=== PATIENT | female | born 1965 | race Caucasian/White ===

== ENCOUNTER 2018-09-30 18:23 | Emergency (ER) | payer OTHER ==
--- OUTSIDE RECORDS SUMMARY | 2018-09-30 18:25 | XMS REPORT | Clinical Summary ---
:1965 Author Organization [facility] Address [address] [place] [address] Care Team Providers Name Role Phone Domingo Mccabe MD Primary Care Provider Allergies No Known Allergies Medications Medication Sig Dispensed Refills Start Date End Date Status bisoprolol-hydrochlorothiazide 0 11/05/2015 Active (ZIAC) 2.5-6.25 mg per tablet escitalopram (LEXAPRO) 10 MG tablet 0 01/03/2016 Active Active Problems Problem Noted Date Leg pain, right 02/14/2016 Family History Medical History Relation Name Comments Cancer Father Varicose Veins Mother Relation Name Status Comments Father oral cancer Mother Social History Tobacco Use Types Packs/Day Years Used Date Never Smoker Alcohol Use Drinks/Week oz/Week Comments No Sex Assigned at Date Recorded Not on file Job Start Date Occupation Industry Not on file Not on file Not on file Travel History Travel Start Travel End No recent travel history available. Last Filed Vital Signs Not on file Plan of Treatment Health Maintenance Due Date Last Done Comments BREAST CANCER SCREENING 02/23/2014 COLONOSCOPY SCREENING 02/23/2014 SHINGLES VACCINES (#1) 02/23/2014 INFLUENZA VACCINE 10/17/2018 Results Not on fileafter 09/29/2017 Advance Directives Patient has advance care planning documents on file. For more information, please contact:Yonny [id number] [place] [address]
--- OUTSIDE RECORDS SUMMARY | 2018-09-30 18:26 | XMS REPORT | Continuity of Care Document ---
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 Medications Medication Details Route Status Patient Ordering Order Source Instructions Provider Date baclofen 10 mg oral 10 mg=1 tab, Active [facility] tablet PO, Bedtime, # 2018 Neuro 30 tab, 3 Refill(s), Pharmacy: [place] [id number] Aspirin 81 MG 81 mg=1 tab, Active [facility] Enteric Coated PO, Daily, # 90 2018 Neuro Tablet tab, 3 Refill(s) Escitalopram 10 mg, PO, Active [facility] Daily, 0 2018 Neuro Refill(s) Bisoprolol Fumarate 1 tab, PO, Active [facility] 2.5 MG / Daily, 0 2018 Neuro Hydrochlorothiazide Refill(s) 6.25 MG Oral Tablet Warfarin 5 mg, 1 tab, Inactive 10/23[facility] Route: PO, Drug 2013 Medical form: TAB, Center Q5PM, Dosing Weight 75.17, kg, Start date: 10/23/13 17:00:00, Duration: 1 doses or times, Stop date: 10/23/13 17:00:00Notes: Nurse to ensure documentation of patient education per anticoagulation policy. Avoid large intake of vitamin-K containing foods diet. (Same As: Coumadin) atorvastatin 40 mg 40 mg=1 tab, Active 10/23[facility] oral tablet PO, Bedtime, # 2014 Medical 30 tab, 0 Center Refill(s) Acetaminophen 325 650 mg=2 tab, Active 08/07/ [facility] [place] MG Oral Tablet PO, Q6H, Pain 2013 Medical 1-3/Temp > Center 100.4 F, # 30 tab, 0 Refill(s) warfarin 1 mg oral 1 mg=1 tab, PO, Active [place] tablet Every Other 2013 Medical Day, # 30 tab, Center 0 Refill(s) warfarin 4 mg oral 4 mg=1 tab, PO, Active [place] tablet Daily, # 30 2013 Medical tab, 0 Center Refill(s) Docusate Sodium 100 100 mg=1 cap, Active [place] MG Oral Capsule PO, Daily, # 30 2013 Medical [Colace] cap, 0 Center Refill(s) Warfarin 4 mg, 2 tab, Inactive [facility] Route: PO, Drug 2013 Medical form: TAB, Center Q5PM, Dosing Weight 75.17, kg, Start date: 10/22/13 17:00:00, Duration: 1 doses or times, Stop date: 10/22/13 17:00:00Notes: Nurse to ensure documentation of patient education per anticoagulation policy. Avoid large intake of vitamin-K containing foods diet. (Same As: Coumadin) Warfarin 5 mg, 1 tab, Inactive [facility] Route: PO, Drug 2013 Medical form: TAB, Center Q5PM, Dosing Weight 75.17, kg, Start date: 10/21/13 17:00:00, Duration: 1 doses or times, Stop date: 10/21/13 17:00:00Notes: Nurse to ensure documentation of patient education per anticoagulation policy. Avoid large intake of vitamin-K containing foods diet. (Same As: Coumadin) Warfarin 4 mg, 2 tab, Inactive [facility] Route: PO, Drug 2013 Medical form: TAB, Center Q5PM, Dosing Weight 75.17, kg, Start date: 10/20/13 17:00:00, Duration: 1 doses or times, Stop date: 10/20/13 17:00:00Notes: Nurse to ensure documentation of patient education per anticoagulation policy. Avoid large intake of vitamin-K containing foods diet. (Same As: Coumadin) Warfarin 5 mg, 1 tab, Inactive [facility] Route: PO, Drug 2013 Medical form: TAB, Center Q5PM, Dosing Weight 75.17, kg, Start date: 10/19/13 17:00:00, Duration: 1 doses or times, Stop date: 10/19/13 17:00:00Notes: Nurse to ensure documentation of patient education per anticoagulation policy. Avoid large intake of vitamin-K containing foods diet. (Same As: Coumadin) Miralax 17 gm, 1 pkt, No Longer [place] Route: PO, Drug Active 2013 Medical form: PWDR, [place] BID, Dosing Weight 75.17, kg, Priority: NOW, Start date: 10/19/13 12:32:00, Duration: 30 day, Stop date: 11/18/13 9:00:00Notes: Dissolve in 8 oz of water or juice. (Same as: Miralax) Warfarin 4 mg, 2 tab, Inactive [facility] Route: PO, Drug 2013 Medical form: TAB, Center Q5PM, Dosing Weight 75.17, kg, Start date: 10/18/13 17:00:00, Duration: 1 doses or times, Stop date: 10/18/13 17:00:00Notes: Nurse to ensure documentation of patient education per anticoagulation policy. Avoid large intake of vitamin-K containing foods diet. (Same As: Coumadin) Warfarin 7.5 mg, 1 tab, Inactive [facility] Route: PO, Drug 2013 Medical form: TAB, Center Q5PM, Dosing Weight 75.17, kg, Start date: 10/17/13 17:00:00, Duration: 1 doses or times, Stop date: 10/17/13 17:00:00Notes: Nurse to ensure documentation of patient education per anticoagulation policy. Avoid large intake of vitamin-K containing foods diet. (Same As: Coumadin) Potassium Chloride 20 mEq, 1 tab, Inactive [facility] Route: PO, Drug 2013 Medical form: ERTAB, Center ONCE, Dosing Weight 75.17, kg, Start date: 10/17/13 14:06:00, Stop date: 10/17/13 14:06:00Notes: (Same as: K-Dur 20) "Do Not Crush" With food and full glass of water Warfarin 7.5 mg, 1 tab, Inactive [facility] Route: PO, Drug 2013 Medical form: TAB, Center Q5PM, Dosing Weight 75.17, kg, Start date: 10/16/13 17:00:00, Duration: 1 doses or times, Stop date: 10/16/13 17:00:00Notes: Nurse to ensure documentation of patient education per anticoagulation policy. Avoid large intake of vitamin-K containing foods diet. (Same As: Coumadin) Acetaminophen 325 1 tab, Route: No Longer [place] MG / Hydrocodone PO, Drug Form: Active 2013 Medical Bitartrate 5 MG TAB, Dosing Center Oral Tablet [[place] Weight 75.17, 5/325] kg, Q6H, PRN Pain Score 7-10, Start date: 10/16/13 11:50:00, Duration: 30 day, Stop date: 11/15/13 11:49:00Notes: (Same as: [place] 325/5) Do not exceed 4gm/day of acetaminophen. Tylenol 650 mg, 2 tab, No Longer [place] Route: PO, Drug Active 2013 Medical form: TAB, Q6H, Center Dosing Weight 75.17, kg, PRN Pain 1-3/Temp > 100.4 F, Start date: 10/16/13 11:49:00, Stop date: 11/15/13 11:48:00Notes: Do not exceed 4 gm/day. (Same as: Tylenol) Docusate Sodium 100 100 mg, 1 cap, No Longer [place] MG Oral Capsule Route: PO, Drug Active 2013 Medical [Colace] form: CAP, Center Daily, Dosing Weight 75.17, kg, Start date: 10/16/13 9:00:00, Duration: 30 day, Stop date: 11/14/13 9:00:00Notes: (Same as: Colace) (Do Not Crush) potassium chloride 20 mEq, 15 mL, Inactive [place] Route: PO, Drug 2013 Medical form: LIQ, Q2H, Center Dosing Weight 75.17, kg, Start date: 10/16/13 9:00:00, Duration: 1 doses or times, Stop date: 10/16/13 9:00:00Notes: (Same as: Potassium Chloride) Potassium Chloride 20 mEq, 1 tab, Inactive [place] Route: PO, Drug 2013 Medical form: ERTAB, Center Q2H, Dosing Weight 75.17, kg, Start date: 10/16/13 6:00:00, Duration: 2 doses or times, Stop date: 10/16/13 8:00:00Notes: (Same as: K-Dur 20) "Do Not Crush" With food and full glass of water Neutra-Phos 2 pkt, Route: Inactive [facility] PO, Drug Form: 2013 Medical PDR/REC, Dosing Center Weight 75.17, kg, ONCE, Start date: 10/16/13 5:02:00, Stop date: 10/16/13 5:02:00Notes: (Same as: Neutra-Phos) Each 1.25 gm pkt has 250mg phosphorous. Mix w/2.5oz water and stir. Lipitor 40 mg, 1 tab, No Longer [facility] Route: PO, Drug Active 2013 Medical form: TAB, Center Bedtime, Dosing Weight 75.17, kg, Start date: 10/15/13 21:00:00, Stop date: 11/13/13 21:00:00Notes: (Same as: Lipitor) Coumadin 5 mg, Route: Inactive [facility] PO, Drug form: 2013 Medical TAB, Q5PM, Center Dosing Weight 75.17, kg, Start date: 10/15/13 17:00:00, Duration: 1 doses or times, Stop date: 10/15/13 17:00:00 Warfarin 7.5 mg, 1 tab, Inactive [facility] Route: PO, Drug 2013 Medical form: TAB, Center Q5PM, Dosing Weight 75.17, kg, Start date: 10/15/13 17:00:00, Duration: 1 doses or times, Stop date: 10/15/13 17:00:00Notes: Nurse to ensure documentation of patient education per anticoagulation policy. Avoid large intake of vitamin-K containing foods diet. (Same As: Coumadin) pantoprazole 40 mg, Route: No Longer [facility] IVP, Drug form: Active 2013 Medical INJ, Daily, kg, Center Start date: 10/15/13 9:00:00, Duration: 30 day, Stop date: 11/13/13 9:00:00Notes: For IV push reconstitute with 10 ml 0.9% sodium chloride and push over 2 minutes. (Same as: Protonix) Aspirin 325 MG 325 mg, 1 tab, No Longer [place] [facility] Coated Route: PO, Drug Active 2013 Medical Tablet form: ECTAB, Center Daily, kg, Start date: 10/15/13 9:00:00, Duration: 30 day, Stop date: 11/13/13 9:00:00Notes: (Do Not Crush) Do not crush or chew. heparin, porcine 5,000 unit, 1 No Longer [facility] mL, Route: Active 2013 Medical SUB-Q, Drug Center form: INJ, Q8H, kg, (For patients weighing Notes: porcine heparin NS 1,000 mL 1,000 mL, Rate: No Longer [place] 125 ml/hr, Active 2013 Medical Infuse over: 8 Center hr, Route: IV, Total Volume: 1,000, Start date: 10/14/13 23:39:00, Duration: 30 day, Stop date: 11/13/13 23:38:00 Sodium Chloride 250 mL, 250 Inactive [facility] 0.154 MEQ/ML ml/hr, Infuse 2013 Medical Injectable Solution Over: 1 hr, Center Route: IV, ONCE, Priority: STAT, kg, Start date: 10/14/13 23:38:00, Duration: 1 doses or times, Stop date: 10/14/13 23:38:00 heparin additive 500 mL, Rate: No Longer [facility] 25,000 unit [14 21.05 ml/hr, Active 2013 Medical unit/kg/hr] + Infuse over: Center Premix Diluent 23.8 hr, Route: Dextrose 5% 500 mL IV, Dosing Weight 75.17 kg, Total Volume: 500 mL, Start date: 10/14/13 23:35:00, Duration: 30 day, Stop date: 11/13/13 23:34:00 Saline Flush 0.9% 5 ml, Route: No Longer [place] IVP, Drug Form: Active 2013 Medical INJ, kg, Q12H, Center Start date: 10/14/13 21:00:00, Duration: 30 day, Stop date: 11/13/13 9:00:00Notes: (Same as: BD Posiflush) Iohexol 85 mL, Route: Inactive [facility] IVP, Drug Form: 2013 Medical SOLN, kg, Center ONCALL, STAT, Start date: 10/14/13 19:12:00, Duration: 1 doses or times, Dose=2.2ml/kg, Max [id number] -- "To be infused by Radiology Staff ONLY"Special Instructions: Dose=2.2ml/kg, Max [id number] -- "To be infused by Radiology Staff ONLY" Saline Flush 0.9% 5 ml, Route: No Longer [facility] IVP, Drug Form: Active 2013 Medical INJ, kg, PRN, Center PRN Line Flush, Start date: 10/14/13 18:54:00, Duration: 30 day, Stop date: 11/13/13 18:53:00Notes: (Same as: BD Posiflush) Sodium Chloride 1,000 mL, Rate: No Longer [facility] 0.154 MEQ/ML 75 ml/hr, Active 2013 Medical Injectable Solution Infuse over: Center 13.3 hr, Route: IV, Total Volume: 1,000, Start date: 10/14/13 18:54:00, Duration: 30 day, Stop date: 11/13/13 18:53:00 Saline Flush 0.9% 5 mL, Route: No Longer [facility] IVP, Drug Form: Active 2013 Medical INJ, kg, PRN, Center PRN Line Flush, Start date: 10/14/13 16:47:00, Duration: 30 day, Stop date: 11/13/13 16:46:00Notes: (Same as: BD Posiflush) Allergies, Adverse Reactions, Alerts Substance Category Reaction Severity Reaction Status Date Comments Source type Reported No Known Assertion Drug Mischer Medication allergy Neuro Allergies Immunizations No Data Provided for This Section Results Order Name Results Value Reference Date Interpretation Comments Source Range HEMATOLOGY INR 2.45 0.85 - 08 <sup>7</sup>I [facility] 04.04 nterpretive Medical Data: Center RECOMMENDED RANGES FOR PROTIME INR:
2.0-3.0 for most medical and surgical thromboemboli c states.
2.5-3.5 for artificial heart valves and recurrent embolism.<br/ >
INR SHOULD BE USED ONLY FOR PATIENTS ON STABLE ANTICOAGULANT THERAPY. HEMATOLOGY PT 26.1 12.0 - 10/23 [facility] HEMATOLOGY INR 2.66 0.85 - 10/22 <sup>8</sup>I [facility] 04.04 nterpretive Medical Data: Center RECOMMENDED RANGES FOR PROTIME INR:
2.0-3.0 for most medical and surgical thromboemboli c states.
2.5-3.5 for artificial heart valves and recurrent embolism.<br/ >
INR SHOULD BE USED ONLY FOR PATIENTS ON STABLE ANTICOAGULANT THERAPY. HEMATOLOGY PT 27.8 12.0 - 10/22 [facility] HEMATOLOGY PT 24.0 12.0 - 10/21 [facility] HEMATOLOGY INR 2.20 0.85 - 10/21 <sup>9</sup>I [facility] 04.04 nterpretive Medical Data: Center RECOMMENDED RANGES FOR PROTIME INR:
2.0-3.0 for most medical and surgical thromboemboli c states.
2.5-3.5 for artificial heart valves and recurrent embolism.<br/ >
INR SHOULD BE USED ONLY FOR PATIENTS ON STABLE ANTICOAGULANT THERAPY. HEMATOLOGY PTT 77.0 22.9 - 10/20 <sup>10</sup> [facility] Interpretive Medical Data: Heparin Center Therapeutic Range: 57 - 92 Seconds HEMATOLOGY PTT 70.0 22.9 - / <sup>11</sup> [facility] Interpretive Medical Data: Heparin Center Therapeutic Range: 57 - 92 Seconds HEMATOLOGY PTT 108.1 22.9 - 08/ <sup>12</sup> [facility] Result Medical Comment: Center Critical Result(s) called to Roddy Ellison at 10/19/2013 15:03 by haroon bryant. Read back OK.
<sup> 13</sup>Inter pretive Data: Heparin Therapeutic Range: 57 - 92 Seconds CHEM PANEL Magnesium Lvl 1.7 1.8 - 2.4 10/17 [facility] CHEM PANEL Phosphorus 2.8 2.5 - 4.5 10/17 [facility] ELECTROLYTE AGAP 12.3 10.0 - 10/17 [facility] S 20.0 [facility] ELECTROLYTE eGFR 114 10/17 <sup>1</sup>R esult Medical Comment: The Center eGFR is calculated using the CKD-EPI formula. In most young, healthy individuals the eGFR will be >90 mL/min/1.73m2 . The eGFR declines with age. An eGFR of 60-89 may be normal in some populations, particularly the elderly, for whom the CKD-EPI formula has not been extensively validated. Use of the eGFR is not recommended in the following populations:& lt;br/>
I ndividuals with unstable creatinine concentration s, including patients and those with serious co-morbid conditions.<b r/>
Patie nts with extremes in muscle mass or diet.

The data above are obtained from the National Kidney Disease Education Program (NKDEP) which additionally recommends that when the eGFR is used in patients with extremes of body mass index for purposes of drug dosing, the eGFR should be multiplied by the estimated BMI. ELECTROLYTE Calcium Lvl 8.2 8.5 - 10.5 10/17 [facility] ELECTROLYTE Chloride Lvl 107 95 - 109 10/17 [facility] ELECTROLYTE CO2 26 24 - 32 10/17 [facility] ELECTROLYTE Glucose Lvl 94 70 - 99 10/17 <sup>4</sup>I [facility] nterpretive Medical Data: Adult Center reference range values reflect the clinical guidelines
of the [place] [employer]. ELECTROLYTE Sodium Lvl 142 135 - 145 10/17 [facility] ELECTROLYTE Potassium Lvl 3.3 3.5 - 5.1 10/17 [facility] ELECTROLYTE BUN 7 7 - 22 10/17 [facility] ELECTROLYTE Creatinine 0.5 0.5 - 1.4 10/17 [facility] HEMATOLOGY Hgb 13.5 12.0 - 10/17 [place] 16.0 [facility] HEMATOLOGY Hct 41.1 36.0 - 10/17 [place] 48.0 [facility] HEMATOLOGY MCV 82.3 81.0 - 10/17 [facility] 99.0 [facility] HEMATOLOGY WBC 7.6 3.7 - 10.4 08 [facility] HEMATOLOGY RBC 5.00 4.20 - 08 [place] 5.40 /2013 [facility] HEMATOLOGY MPV 9.0 7.4 - 10.4 08 [facility] HEMATOLOGY Platelet 178 133 - 450 08 [facility] HEMATOLOGY MCHC 32.9 32.0 - 08 [place] 36.0 /2013 [facility] HEMATOLOGY MCH 27.0 27.0 - 08 [place] 31.0 [facility] HEMATOLOGY RDW 18.1 11.5 - 08 [place] 14.5 [facility] HEMATOLOGY Eosinophils 1.5 0.0 - 4.0 08 [facility] HEMATOLOGY Eosinophils # 0.1 0.0 - 0.5 10/17 [facility] HEMATOLOGY Basophils # 0.1 0.0 - 0.2 10/17 [facility] HEMATOLOGY Segs-Bands # 4.3 1.5 - 8.1 10/17 [facility] HEMATOLOGY Basophils 0.8 0.0 - 1.0 08 [facility] HEMATOLOGY Lymphocytes # 2.4 1.0 - 5.5 10/17 [facility] HEMATOLOGY Monocytes # 0.7 0.0 - 0.8 10/17 [facility] HEMATOLOGY Lymphocytes 31.1 20.0 - 10/17 40.0 [facility] HEMATOLOGY Monocytes 9.7 2.0 - 12.0 10/17 [facility] HEMATOLOGY Segs 56.9 45.0 - 10/17 [place] 75.0 [facility] CHEM PANEL Phosphorus 2.2 2.5 - 4.5 10/16 [facility] CHEM PANEL Magnesium Lvl 1.8 1.8 - 2.4 10/16 [facility] ELECTROLYTE AGAP 14.3 10.0 - 10/16 S 20.0 [facility] ELECTROLYTE eGFR 123 10/16 <sup>2</sup>R esult Medical Comment: The Center eGFR is calculated using the CKD-EPI formula. In most young, healthy individuals the eGFR will be >90 mL/min/1.73m2 . The eGFR declines with age. An eGFR of 60-89 may be normal in some populations, particularly the elderly, for whom the CKD-EPI formula has not been extensively validated. Use of the eGFR is not recommended in the following populations:& lt;br/>
I ndividuals with unstable creatinine concentration s, including patients and those with serious co-morbid conditions.<b r/>
Patie nts with extremes in muscle mass or diet.

The data above are obtained from the National Kidney Disease Education Program (NKDEP) which additionally recommends that when the eGFR is used in patients with extremes of body mass index for purposes of drug dosing, the eGFR should be multiplied by the estimated BMI. ELECTROLYTE Glucose Lvl 97 70 - 99 10/16 <sup>5</sup>I [facility] nterpretive Medical Data: Adult Center reference range values reflect the clinical guidelines
of the [place] [employer]. ELECTROLYTE BUN 11 7 - 22 10/16 [facility] 2013 [facility] ELECTROLYTE Sodium Lvl 140 135 - 145 10/16 [facility] ELECTROLYTE Potassium Lvl 3.3 3.5 - 5.1 10/16 [facility] ELECTROLYTE Chloride Lvl 106 95 - 109 10/16 [facility] ELECTROLYTE Creatinine 0.4 0.5 - 1.4 10/[address] [facility] ELECTROLYTE Calcium Lvl 8.6 8.5 - 10.5 10/16 [facility] 2013 [facility] ELECTROLYTE CO2 23 24 - 32 10/16 [facility] 2013 [facility] HEMATOLOGY Monocytes # 0.9 0.0 - 0.8 10/16 [facility] HEMATOLOGY Eosinophils # 0.1 0.0 - 0.5 10/16 [facility] HEMATOLOGY Eosinophils 0.5 0.0 - 4.0 10/16 [facility] HEMATOLOGY Lymphocytes # 2.3 1.0 - 5.5 10/16 [facility] HEMATOLOGY Basophils 0.4 0.0 - 1.0 10/16 [facility] HEMATOLOGY Segs-Bands # 6.6 1.5 - 8.1 10/[address] HEMATOLOGY Monocytes 9.2 2.0 - 12.0 10/16 [facility] HEMATOLOGY Lymphocytes 23.4 20.0 - 10/16 [place] 40.0 /2013 [facility] HEMATOLOGY Segs 66.5 45.0 - 10/16 [place] 75.0 /2013 [facility] HEMATOLOGY Platelet 185 133 - 450 10/16 [facility] HEMATOLOGY MPV 8.8 7.4 - 10.4 10/16 [facility] HEMATOLOGY MCH 26.6 27.0 - 10/16 [place] 31.0 [facility] HEMATOLOGY Hct 40.8 36.0 - 10/16 [place] 48.0 [facility] HEMATOLOGY MCHC 32.5 32.0 - 10/16 [place] 36.0 [facility] HEMATOLOGY RDW 17.6 11.5 - 10/16 [place] 14.5 [facility] HEMATOLOGY MCV 81.7 81.0 - 10/16 [place] 99.0 /2013 [facility] HEMATOLOGY RBC 4.99 4.20 - 10/16 [place] 5.40 /2013 [facility] HEMATOLOGY Hgb 13.3 12.0 - 10/16 [place] 16.0 [facility] HEMATOLOGY WBC 10.0 3.7 - 10.4 10/16 [facility] CHEM PANEL Phosphorus 3.1 2.5 - 4.5 10/15 [facility] CHEM PANEL Magnesium Lvl 1.8 1.8 - 2.4 10/15 [facility] ELECTROLYTE AGAP 16.4 10.0 - 10/15 [place] S 20.0 [facility] ELECTROLYTE eGFR 107 10/15 <sup>3</sup>R esult Medical Comment: The Center eGFR is calculated using the CKD-EPI formula. In most young, healthy individuals the eGFR will be >90 mL/min/1.73m2 . The eGFR declines with age. An eGFR of 60-89 may be normal in some populations, particularly the elderly, for whom the CKD-EPI formula has not been extensively validated. Use of the eGFR is not recommended in the following populations:& lt;br/>
I ndividuals with unstable creatinine concentration s, including patients and those with serious co-morbid conditions.<b r/>
Patie nts with extremes in muscle mass or diet.

The data above are obtained from the National Kidney Disease Education Program (NKDEP) which additionally recommends that when the eGFR is used in patients with extremes of body mass index for purposes of drug dosing, the eGFR should be multiplied by the estimated BMI. ELECTROLYTE Calcium Lvl 8.9 8.5 - 10.5 10/15 [facility] ELECTROLYTE Chloride Lvl 108 95 - 109 10/15 [facility] ELECTROLYTE CO2 22 24 - 32 10/15 [facility] ELECTROLYTE Sodium Lvl 143 135 - 145 10/15 [facility] ELECTROLYTE Creatinine 0.6 0.5 - 1.4 10/15 [facility] ELECTROLYTE BUN 12 7 - 22 10/15 [facility] ELECTROLYTE Glucose Lvl 113 70 - 99 10/15 <sup>6</sup>I [facility] nterpretive Medical Data: Adult Center reference range values reflect the clinical guidelines
of the [place] [employer]. ELECTROLYTE Potassium Lvl 3.4 3.5 - 5.1 10/15 [facility] HEMATOLOGY Lymphocytes # 0.9 1.0 - 5.5 10/15 [facility] HEMATOLOGY Monocytes # 0.1 0.0 - 0.8 10/15 [facility] HEMATOLOGY Lymphocytes 10.0 20.0 - 10/15 [place] 40.0 [facility] HEMATOLOGY Segs 88.7 45.0 - 10/15 [place] 75.0 [facility] HEMATOLOGY Monocytes 1.2 2.0 - 12.0 10/15 [facility] HEMATOLOGY Basophils 0.1 0.0 - 1.0 10/15 [facility] HEMATOLOGY Segs-Bands # 7.6 1.5 - 8.1 10/15 [facility] HEMATOLOGY Platelet 192 133 - 450 10/15 [facility] HEMATOLOGY MPV 8.7 7.4 - 10.4 10/15 [facility] HEMATOLOGY Hgb 13.4 12.0 - 10/15 [place] 16.0 [facility] HEMATOLOGY Hct 41.4 36.0 - 10/15 [place] 48.0 [facility] HEMATOLOGY RDW 18.0 11.5 - 10/15 [place] 14.5 [facility] HEMATOLOGY MCV 81.7 81.0 - 10/15 [place] 99.0 [facility] HEMATOLOGY MCH 26.5 27.0 - 10/15 [place] 31.0 /2013 [facility] HEMATOLOGY WBC 8.6 3.7 - 10.4 10/15 [facility] HEMATOLOGY RBC 5.06 4.20 - 10/15 [place] 5.40 /2013 [facility] HEMATOLOGY MCHC 32.4 32.0 - 10/15 [place] 36.0 /2013 [facility] LIPIDS VLDL 8 10/15 [facility] LIPIDS LDL 110 <=99 mg/dL 10/15 [facility] (Calculated) [facility] LIPIDS Trig 41 <=149 10/15 [facility] mg/dL [facility] LIPIDS Chol 189 <=199 10/15 [facility] mg/dL [facility] LIPIDS HDL 71 >=61 mg/dL 10/15 [facility] LIPIDS CHD Risk 2.66 3.90 - 10/15 [place] 5.80 /2013 [facility] SPECIAL Hgb A1C 5.1 <=5.6 % 10/15 [facility] [facility] CHEMISTRY /2013 [facility] PARATHYROID Ca Ion WB 1.14 1.05 - 10/15 [place] PROFILE 1. [facility] PARATHYROID Ca Norm WB 1.11 1.05 - 10/15 [facility] PROFILE 1. [facility] URINE AND UA Blood Moderate Negative 10/14 [facility] STOOL *ABN* /2013 [facility] (10/14/13 5:00 PM) [place] URINE AND UA Bili Negative Negative 10/14 [facility] STOOL *NA* /2013 [facility] (10/14/13 5:00 PM) [place] URINE AND UA Ketones >=80 mg/dL Negative 10/14 [facility] STOOL mg/dL /2013 [facility] URINE AND UA Glucose Negative Negative 10/14 [facility] (10/14/13 5:00 PM) [facility] URINE AND UA 0.2 0.1 - 1.0 10/14 [facility] STOOL Urobilinogen /2013 [facility] URINE AND UA Leuk Est Negative Negative 10/14 [facility] (10/14/13 5:00 PM) [facility] URINE AND UA Nitrite Negative Negative 10/14 [facility] (10/14/13 5:00 PM) [facility] URINE AND UA Protein Negative Negative 10/14 [facility] ST[facility] (10/14/13 5:00 PM) [facility] URINE AND UA pH 6.5 5.0 - 8.0 10/14 [facility] URINE AND UA Spec Grav 1.020 <=1.030 10/14 [facility] URINE AND UA Color Yellow Yellow 10/14 [facility] STOOL *NA* /2013 [facility] (10/14/13 5:00 PM) [place] URINE AND UA Turbidity Slight Cloudy Clear 10/14 [facility] (10/14/13 5:00 PM) [facility] URINE AND UA Mucus Rare /LPF None Seen 10/14 [facility] STOOL /LPF /2013 [facility] URINE AND UA Bacteria Occasional None Seen 10/14 [facility] /HPF /HPF [facility] URINE AND UA WBC 0-2 /HPF None Seen 10/14 [facility] /HPF [facility] URINE AND UA RBC 11-20 /HPF 0 - 2 10/14 [facility] URINE AND UA Sq Epi Rare /LPF Few /LPF 10/14 [facility] URINE AND Micro? Performed 10/14 [facility] (10/14/13 5:00 PM) [facility] CARDIAC CK MB Index 1.4 0.0 - 2.5 10/14 [facility] ENZYMES [facility] CARDIAC CK MB 0.7 0.5 - 3.6 10/14 [facility] CARDIAC Troponin-I <0.02 0.00 - 10/14 [facility] ENZYMES 0.40 /2013 [facility] CARDIAC Total CK 49 12 - 191 10/14 [facility] HEMATOLOGY Basophils # 0.0 0.0 - 0.2 10/14 [facility] HEMATOLOGY Eosinophils # 0.0 0.0 - 0.5 10/14 [facility] HEMATOLOGY RBC Morph Normal 10/14 [facility] (10/14/13 4:38 PM) [facility] HEMATOLOGY Plt Morph Normal 10/14 [facility] (10/14/13 4:38 PM) [facility] HEMATOLOGY Eosinophils 0.3 0.0 - 4.0 10/14 [facility] Pathology Reports No Data Provided for This Section Diagnostic Reports No Data Provided for This Section Consultation Notes No Data Provided for This Section Discharge Summaries No Data Provided for This Section History and Physicals No Data Provided for This Section Vital Signs Vital Sign Value Date Comments Source BMI Calculated 26.53 12/19/2017 [facility] Weight 74.545 12/19/2017 [facility] Height 167.64 cm 12/19/2017 [facility] Systolic (mm Hg) 133 12/19/2017 [facility] Diastolic (mm Hg) 77 12/19/2017 [facility] Heart Rate 64 12/19/2017 [facility] Respitory Rate 14 10/23/2013 [facility] Temperature Oral (F) 98.3 F 10/23/2013 [facility] Heart Rate 90 10/23/2013 [facility] Systolic (mm Hg) 131 10/23/2013 [facility] Diastolic (mm Hg) 93 10/23/2013 [facility] Temperature Oral (F) 98.2 F 10/23/2013 [facility] Respitory Rate 14 10/23/2013 [facility] Heart Rate 81 10/23/2013 [facility] Systolic (mm Hg) 140 10/23/2013 [facility] Diastolic (mm Hg) 96 10/23/2013 [facility] Diastolic (mm Hg) 90 10/23/2013 [facility] Systolic (mm Hg) 128 10/23/2013 [facility] Temperature Oral (F) 98.7 F 10/23/2013 [facility] Heart Rate 76 10/23/2013 [facility] Respitory Rate 18 10/23/2013 [facility] Weight 75.17 10/15/2013 [facility] BMI Calculated 25.2 10/15/2013 [facility] Height 172.72 cm 10/15/2013 [facility] Encounters Location Location Encounter Encounter Reason Attending ADM DC Status Source Details Type Number For Provider Date Date Visit [facility] [id number] [place] 10/14 10/23 [facility]2013 [facility] Outpatient [id number] LALITHA 12/19 Active [facility] [id number] Lalitha 12/19 12/20 [facility] Outpatient [id number] LALITHA 01/30 [facility] [facility] [id number] Lalitha 01/30 01/30 [facility] Outing Procedures Procedure Code Date Perfomer Comments Source Excision of [id number] [facility] bunion Excision of [id number] [facility] Assessment and Plan Assessment and Plan Date Source Extracted from:Title: UTS Progress Note 10/23/2013 [facility] Author: Clare Cooper MD Date: 10/22/13 ATTENDING PHYSICIAN/PAGER NUMBER: Clare Cooper, pager [phone]. Code status: Full code. HPI: 48 year old female with no significant PMH admitted with left frontal CVA. She was found to have left ICA dissection, unclear etiology. SUBJECTIVE: No pain. OBJECTIVE: Vitals and Temp: Vitals Tmp(F) Pulse BP RR SpO2 FIO2 10/22 19:33 97.7 83 125/85 18 100 --- 10/22 15:52 98.0 86 118/81 18 98 --- 10/22 11:59 97.3 69 125/79 16 98 --- 10/22 08:26 99.5 82 123/85 16 98 --- 06 03:51 96.4 71 118/85 18 99 --- 24 Hr Tmax: 99.5F (37.50c) at 10/22 08:26 Vital Signs are the last 5 in the past 48 hours. PHYSICAL EXAM: Expressive aphagia Right sided hemiparesis, improving. RLE antigravity. Right distal upper extremity antigravity, right proximal upper extremity weakness. Follows commands. Heart is regular, normal S1 and S2. No m/r/g. No edema. Lungs with decreased breath sounds at the bases. Normal respiratory effort. No cyanosis. Abdomen soft, nontender, normal bowel sounds. No peritoneal signs. MEDICATION LIST: Scheduled Meds (4):atorvastatin (Lipitor), docusate (Colace 100 mg oral capsule ), polyethylene glycol 3350 (MiraLax), sodium chloride (Saline Flush 0.9%) Unscheduled Meds: None PRN Meds (3):acetaminophen-hydrocodone ([place] 5/325 oral tablet), acetaminophen (Tylenol), sodium chloride (Saline Flush 0.9%) One Time Meds: None Continuous Infusions: None Labs (Last four charted values) PT H 27.8 (OCT 22) H 24.0 (OCT 21) H 25.2 ( OCT 20) H 23.8 (OCT 19) INR H 2.66 (OCT 22) H 2.20 (OCT 21) H 2.34 ( OCT 20) H 2.17 (OCT 19) PTT H 77.0 (OCT 20) H 70.0 (OCT 19) C 108.1 (OCT 19) H 40.5 (OCT 19) ASSESSMENT and PLAN Left ICA dissection Acute ischemic stroke - LMCA Hypokalemia Hypomagnesemia The patient is progressing well with PT, she was able to ambulate a short distance today. As per Stroke recommendations the patient will need anticoagulation for 3 months followed by CTA. If clot still present she will need an additional 3 months of anticoagulation. She will need follow up w ith the Stroke clinic and further work up for hypercoaguable disorder versus genetic testing. Continue warfarin and statin. Prophylaxis: INR is therapeutic. Dispo: awaiting rehab placement Extracted from:Title: Clinical Document Author: Grant Jacques DO Date: 10/14/13 Stroke History and Physical Requesting Physician/Service: ER Chief Complaint: Stroke History of Present Illness This is a 48 year old female with no pertinent medical history who presents from [facility] after having a stroke. Imaging revealed a left frontal ischemic stroke. Apparently, she was last seen normal last nig ht at unknown time. Last night, patient developed RUE numbness with a headache and went to the ER. Imaging at [facility] revealed no stroke, she was thought to have a complex migraine and sent home with [place]. Early this morning she developed sudden aphasia (unknown time, most likely ~ 9am) and returned to the same ER. Family noticed she was dragging her right leg and inability to articulate words. She was fo und to have an left frontal ischemic stroke on repeat CTH. She took 1 tab of norco yesterday night, developed neurological changes the following morning. After she was found to have a stroke, she was th en transferred to [facility] for further acute care. She was well out of the window for tPA since she was found altered this morning around 9am. Her baseline is alert and oriented x 3. Review of Systems: 1. GEN: no fever, chills, weight loss, fatigue 2. EYES: no blurred vision, double vision 3. CARDIO: no chest pain, palpitations 4. PULM: no shortness of breath, cough 5. GI: no nausea, vomiting, diarrhea, no abdominal pain 6. : no frequency, dysuria, burning, hematuria, no urinary incontinence 7. NEURO: see HPI 8. SKIN: no rash or lesion 9. ENDOCRINE: No constipation, palpitation or diarrhea or fatigue 10. MUSCULOSKELETAL: No joint pain Past Medical History: None Past Surgical History: None Family Medical History: Diabetes and HTN (maternal) Social History: Lives with family. Denies smoking or alcohol use. No drug use. Medications: Allergies: Physical Exam: Vital Signs: GENERAL: Awake, alert HEENT: - Normocephalic and atraumatic LUNGS - Clear to auscultation bilaterally with no wheezes CV - S1S2 RRR, no m/r/g, equal pulses bilaterally. ABDOMEN - Soft, nontender, nondistended with normoactive BS NEUROLOGY: Expressive aphasia, able to follow commands intermittently, confused, RUE hemiplegia, RLE hemiparesis (3/5 strength) Speech: fluent, comprehension intact, repetition and naming intact embedded systems developer: 2-12 intact Motor: Tone: Normal Power: RUE 0/5, RLE 3/5; left side 5/5 Reflexes: 1+ RUE, 1+ RLE, 2+ left side Plantar: downgoing toes on left foot, unresponsive on right Drift: present RLE Sensory: Decreased light touch and pin-prick RUE and RLE Cerebellar signs: deferred Gait: deferred NIH Stroke Scale (NIHSS) 0 1a. Level of Consciousness; 0-alert 1-drowsy 2-stupor 0 1a. Level of Consciousness; 0-alert 1-drowsy 2-stupor 0 1a. Level of Consciousness; 0-alert 1-drowsy 2-stupor 1 1b. LOC Questions month and age; 0-both 1-one 2-neither 1 1c. LOC Commands open/close eyes, breakdown person/release non-paretic hand; 0-both 1- one 2-neither 0 2. Best Gaze; 0-nl 1-partial 2-forced gaze 0 2. Best Gaze; 0-nl 1-partial 2-forced gaze 0 2. Best Gaze; 0-nl 1-partial 2-forced gaze 0 3. Visual White; 0-No visual loss. 1-Partial hemianopia 2-Complete 3- Bilateral 0 2. Best Gaze; 0-nl 1-partial 2-forced gaze 0 2. Best Gaze; 0-nl 1-partial 2-forced gaze 0 3. Visual White; 0-No visual loss. 1-Partial hemianopia 2-Complete 3- Bilateral 0 2. Best Gaze; 0-nl 1-partial 2-forced gaze 0 3. Visual White; 0-No visual loss. 1-Partial hemianopia 2-Complete 3- Bilateral 2 4. Facial Palsy; 0-none 1-minor 2-partial 3-complete 4 5. Motor R arm; 0-No drift 1-Drift 2-Some antigravity 3-No antigravity 4-No movement 2 6. Motor R leg; 0-No drift 1-Drift 2-Some antigravity 3-No antigravity 4-No movement 0 7. Motor L arm; 0-No drift 1-Drift 2-Some antigravity 3-No antigravity 4-No movement 6. Motor R leg; 0-No drift 1-Drift 2-Some antigravity 3-No antigravity 4 -No movement 6. Motor R leg; 0-No drift 1-Drift 2-Some antigravity 3-No antigravity 4 -No movement 0 7. Motor L arm; 0-No drift 1-Drift 2-Some antigravity 3-No antigravity 4-No movement 6. Motor R leg; 0-No drift 1-Drift 2-Some antigravity 3-No antigravity 4 -No movement 7. Motor L arm; 0-No drift 1-Drift 2-Some antigravity 3-No antigravity 4 -No movement 0 8. Motor L leg; 0-No drift 1-Drift 2-Some antigravity 3-No antigravity 4-No movement 0 9. Limb Ataxia; 0 absent 1 - 1limb 2 - 2 limbs 9. Limb Ataxia; 0 absent 1 - 1limb 2 - 2 limbs 9. Limb Ataxia; 0 absent 1 - 1limb 2 - 2 limbs 10. Sensory; 0-nl 1-partial loss 2-dense loss 9. Limb Ataxia; 0 absent 1 - 1limb 2 - 2 limbs 9. Limb Ataxia; 0 absent 1 - 1limb 2 - 2 limbs 10. Sensory; 0-nl 1-partial loss 2-dense loss 9. Limb Ataxia; 0 absent 1 - 1limb 2 - 2 limbs 10. Sensory; 0-nl 1-partial loss 2-dense loss 11. Best Language; 0-nl 1-mild/mod 2-severe 3-mute 9. Limb Ataxia; 0 absent 1 - 1limb 2 - 2 limbs 9. Limb Ataxia; 0 absent 1 - 1limb 2 - 2 limbs 10. Sensory; 0-nl 1-partial loss 2-dense loss 9. Limb Ataxia; 0 absent 1 - 1limb 2 - 2 limbs 10. Sensory; 0-nl 1-partial loss 2-dense loss 11. Best Language; 0-nl 1-mild/mod 2-severe 3-mute 9. Limb Ataxia; 0 absent 1 - 1limb 2 - 2 limbs 10. Sensory; 0-nl 1-partial loss 2-dense loss 11. Best Language; 0-nl 1-mild/mod 2-severe 3-mute 12. Dysarthria; 0-nl 1-mild/mod 2-severe x-untestable 9. Limb Ataxia; 0 absent 1 - 1limb 2 - 2 limbs 9. Limb Ataxia; 0 absent 1 - 1limb 2 - 2 limbs 10. Sensory; 0-nl 1-partial loss 2-dense loss 9. Limb Ataxia; 0 absent 1 - 1limb 2 - 2 limbs 10. Sensory; 0-nl 1-partial loss 2-dense loss 11. Best Language; 0-nl 1-mild/mod 2-severe 3-mute 9. Limb Ataxia; 0 absent 1 - 1limb 2 - 2 limbs 10. Sensory; 0-nl 1-partial loss 2-dense loss 11. Best Language; 0-nl 1-mild/mod 2-severe 3-mute 12. Dysarthria; 0-nl 1-mild/mod 2-severe x-untestable 0 9. Limb Ataxia; 0 absent 1 - 1limb 2 - 2 limbs 1 10. Sensory; 0-nl 1-partial loss 2-dense loss 2 11. Best Language; 0-nl 1-mild/mod 2-severe 3-mute 2 12. Dysarthria; 0-nl 1-mild/mod 2-severe x-untestable 13. 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 Thoracic dextroscoliosis. Lab w/up: 24hr Labs 10/14 1700 UA Turbidity Slight Cloudy UA Color Yellow UA Spec Grav 1.020 UA pH 6.5 UA Protein Negative UA Glucose Negative UA Ketones >=80 UA Bili Negative UA Blood Moderate UA Urobilinogen 0.2 UA Nitrite Negative UA Leuk Est Negative Micro? Performed UA WBC 0-2 UA RBC 11-20 UA Bacteria Occasional UA Mucus Rare UA Sq Epi Rare 10/14 1647 Glucose Lvl 102 H BUN 14 Creatinine Lvl 0.6 Sodium Lvl 140 Potassium Lvl 3.4 L Chloride Lvl 107 CO2 24 AGAP 12.4 Calcium Lvl 8.7 eGFR 107 Total CK 49 Troponin-I <0.02 CK MB 0.7 CK MB Index 1.4 PT 12.7 INR 0.96 PTT 29.5 10/14 1638 WBC 11.0 H RBC 4.97 Hgb 13.4 Hct 40.3 MCV 81.1 MCH 27.0 MCHC 33.2 RDW 17.1 H Platelet 214 MPV 8.6 Segs 88.6 H Monocytes 0.8 L Lymphocytes 10.3 L Eosinophils 0.3 Basophils 0.0 Segs-Bands # 9.8 H Lymphocytes # 1.1 Monocytes # 0.1 Eosinophils # 0.0 Basophils # 0.0 RBC Morph Normal Plt Morph Normal ASSESSMENT: This is a 48 year old female with no pertinent medical history who presents from [facility] after the window of tPA with a L MCA stroke. Imaging revealed a left parieto-temporal ischemic stroke. Physical exam is positive for RUE hemiplegia, RLE hemiparesis, right facial droop, able to follow commands intermittently, expressive aphasia. This is most likely a Left MCA stroke. She was not a candidate for tPA secondary to time. Etiology: Unknown, may be cardioembolic. PLAN # Acute Ischemic Stroke: Stroke Work Up: - Location: left MCA infarct - Telemetry - EKG to evaluate for cardiac arrhythmias. - Ordered MRI of brain without Contrast - Ordered 2D echo with bubble study - ASA 81 mg po daily - DVT ppx: Heparin 5000U subq q8/SCDs - Head of the bed flat, if not possible then at 15 - start the patient on normal saline at 75 mL per hour, consider reducing after echocardiogram is completed. - Will start permissive HTN systolic goal of 140-180s and then normalize over the next 24-48h. - q1hr Neurology Checks. - Lipitor 80 mg po daily, will order lipid panel and hepatic panel and adjust Lipitor accordingly. LDL Goal of <70 - Hemaglobin A1c. Goal < 6.5. - Start sliding scale insulin for tight glucose control - PT/OT/DIRECTOR OF SUSTAINABILITY - GI PPX: protonix - Colace and Senna Case discussed with Stroke Fellow. We will admit to Stroke team. Grant Jacques DO [facility], Neurology-PGY2 Pager#: [phone], [phone] MSO#: [id number] STROKE NEUROLOGY STAFF I have seen and examined the patient. Furthermore, I have discussed the case with and reviewed Dr. Jacques's note and agree with the history, exam, assessment and plan. See note below for additio ns and/or exceptions and my findings. I have personally viewed the patient's radiographic studies and laboratory tests. Notable Labs: LDL: 110; CT-angiogram head/neck: + occluded terminal left ICA along with an extensive left extracranial ICA dissection. MRI brain: + acute infarction in the left BG, insula and fronto-opercular regions. No hemorrhage. Transthoracic Echocardiogram: pending Assessment / Plan: 67549 Ischemic Stroke secondary to left carotid dissection- 434.11 and 443.21 Current suspected etiology: other (dissection). Continue evaluation: transthoracic echocardiogram, cardiac telemetry, laboratory tests, follow-up reports from neuroimaging. Treatment: anticoagulation with IV-heparin and plan for 3 months of coumadin with goal INR of 2-3. Start coumadin tonight. PT/OT/speech therapy evaluation and treatment. DVT prophylaxis - - SCDs and ADRYAN hose - Heparin IV I have talked the patient and available family in detail about the warning signs of stroke; the importance of their early recognition and activation of EMS. The stroke risk factors have also been clearl y identified and communicated to the patient. The importance of taking prescribed medication for secondary stroke prevention and being regular in follow up appointments has also been emphasized. Bhanu Roberson M.D. Interface Control Officer Dept of Neurology [phone] (pager) [phone] (cell) Plan of Care No Data Provided for This Section Social History Social History Date Source Social History TypeResponse 10/15/2013 [facility] Alcohol Current, Type Beer. Frequency: 3-5 times per week. Alcohol use interferes with work or home: No. Drinks more than intended: No. Others hurt by drinking : No. Ready to change: No. Household alcohol concerns: No. Smoking Status Never smoker; Exposure to Tobacco Smoke None; Cigarette Smoking Last 365 Days No; Reg Smoking Cessation Counseling No entered on: 12/19/17 Social History TypeResponse 10/15/2013 [facility] Alcohol Use: Current, Type: Beer, Frequency: 3-5 times per week, Has alcohol use interfered with work or home life? No, Do you ever drink more than intended? No , Has anyone been hurt or at risk by your drinking ? No, Ready to change: No, Concerns about alcohol use in household: No Smoking Status Never smoker, Exposure to Tobacco Smoke None, Cigarette Smoking Last 365 Days No, Reg Smoking Cessation Counseling No Family History No Data Provided for This Section Advance Directives No Data Provided for This Section Functional Status No Data Provided for This Section
--- OUTSIDE RECORDS SUMMARY | 2018-09-30 18:26 | XMS REPORT | Summary of Care ---
:1965 Author Organization [facility] Neu[facility] [place] Address [address] [place] [address]- phone Encounter HQ Radhar_yancy(FIN) [id number] Date(s): 01/30/18 - 01/30/18 [facility] [address] [place] [address]- [phone] Attending Physician: Phoenix Garcias MD Referring Physician: Phoenix Garcias MD Vital Signs No data available for this section Problem List Condition Effective Dates Status Health Status Informant Aphasia(Confirmed) Active Stroke(Confirmed) Resolved Carotid artery dissection(Confirmed) Active Focal dystonia(Confirmed) Active HTN (hypertension)(Confirmed) Resolved Allergies, Adverse Reactions, Alerts No Known Medication Allergies Medications No data available for this section Results No data available for this section Immunizations No data available for this section Procedures Procedure Date Related Diagnosis Body Site Status Excision of bunion Completed Social History Social History Type Response Alcohol Current, Type Beer. Frequency: 3-5 times per week. Alcohol use interferes with work or home: No. Drinks more than intended: No. Others hurt by drinking: No. Ready to change: No. Household alcohol concerns: No. Smoking Status Never smoker; Exposure to Tobacco Smoke None; Cigarette Smoking Last 365 Days No; Reg Smoking Cessation Counseling No entered on: 12/19/17 Assessment and Plan No data available for this section
--- NOTE | 2018-09-30 19:14 | RAD REPORT ---
EXAM DESCRIPTION: CT - Head Brain Wo Cont - 09/30/2018 6:58 pm CLINICAL HISTORY: Persistent right frontal headache COMPARISON: CT study September 2013 TECHNIQUE: Axial 5 mm thick images of the head were obtained without IV contrast. All CT scans are performed using dose optimization technique as appropriate and may include automated exposure control or mA/KV adjustment according to patient size. FINDINGS: No intracranial hemorrhage, mass, edema or shift of mid-line structures. No acute infarcti on changes are present. No significant atrophy or chronic ischemic change. Encephalomalacia is presen t in the left frontal lobe and sylvian fissure region related to prior CVA that occurred 2013. Infarc tion involve the head of the caudate and lentiform nucleus as well. Lateral ventricle has enlarged du e to the encephalomalacia. No acute ventricle finding. No acute cortical based infarction. Mastoid air cells and visualized portions of the paranasal sinuses are clear. No acute bony findings. IMPRESSION: Negative noncontrast CT head examination for acute finding. Left frontal lobe and left basal ganglia encephalomalacia from prior CVA.
[2018-09-30] MEDS ORDERED: dexAMETHasone 10 MG/ML VIAL ONE (19:51)
[2018-09-30] MEDS ORDERED: NA CHLORIDE 0.9% 100 ML IV ONE (19:52)
[2018-09-30] MEDS ORDERED: DIPHENHYDRAMINE 50 MG/ML VIAL ONE (19:52)
[2018-09-30] MEDS ORDERED: METOCLOPRAMIDE 10 MG/2mL INJ ONE (19:52)
--- NOTE | 2018-09-30 20:14 | EDPHYS ---
Physician Documentation [facility] Name: Rosalina Dooley Age: 53 yrs Sex: Female : 1965 Arrival Date: 09/30/2018 Time: 18:24 Bed 30 Private MD: Domingo Mccabe ED Physician Duncan Anne HPI: 09/30 20:00 This 53 yrs old Female presents to ER via Ambulatory with complaints of pm1 Headache. 20:00 The patient complains of pain to the forehead. The patient describes the headache as pm1 aching, constant. Onset: The symptoms/episode began/occurred 2 day(s) ago. Associated signs and symptoms: Pertinent negatives: dizziness, nausea, vomiting. Severity of symptoms: in the emergency department the pain is unchanged. Headache History: The patient has had previous headaches and this one is similar to previous episodes. The symptoms are alleviated by nothing. the symptoms are aggravated by nothing. The patient has not recently seen a physician, the patient's primary care provider is Dr. Mccabe. 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 - Social history:: Smoking status: Patient/guardian denies using tobacco. - Ebola Screening: : No symptoms or risks identified at this time. ROS: 20:00 Constitutional: Negative for fever, chills, and weight loss, Eyes: Negative for injury, pm1 pain, redness, and discharge, ENT: Negative for injury, pain, and discharge, Neck: Negative for injury, pain, and swelling, Cardiovascular: Negative for chest pain, palpitations, and edema, Respiratory: Negative for shortness of breath, cough, wheezing, and pleuritic chest pain, Abdomen/GI: Negative for abdominal pain, nausea, vomiting, diarrhea, and constipation, Back: Negative for injury and pain, MS/Extremity: Negative for injury and deformity, Skin: Negative for injury, rash, and discoloration. 20:00 Neuro: Positive for headache, Negative for altered mental status, dizziness. Exam: 20:00 Constitutional: This is a well developed, well nourished patient who is awake, alert, pm1 and in no acute distress. 20:00 Eyes: Pupils equal round and reactive to light, extra-ocular motions intact. Lids and lashes normal. Conjunctiva and sclera are non-icteric and not injected. Cornea within normal limits. Periorbital areas with no swelling, redness, or edema. ENT: Nares patent. No nasal discharge, no septal abnormalities noted. Tympanic membranes are normal and external auditory canals are clear. Oropharynx with no redness, swelling, or masses, exudates, or evidence of obstruction, uvula midline. Mucous membranes moist. Neck: Trachea midline, no thyromegaly or masses palpated, and no cervical lymphadenopathy. Supple, full range of motion without nuchal rigidity, or vertebral point tenderness. No Meningismus. Chest/axilla: Normal chest wall appearance and motion. Nontender with no deformity. No lesions are appreciated. Cardiovascular: Regular rate and rhythm with a normal S1 and S2. No gallops, murmurs, or rubs. Normal PMI, no JVD. No pulse deficits. Respiratory: Lungs have equal breath sounds bilaterally, clear to auscultation and percussion. No rales, rhonchi or wheezes noted. No increased work of breathing, no retractions or nasal flaring. Abdomen/GI: Soft, non-tender, with normal bowel sounds. No distension or tympany. No guarding or rebound. No evidence of tenderness throughout. Back: No spinal tenderness. No costovertebral tenderness. Full range of motion. Skin: Warm, dry with normal turgor. Normal color with no rashes, no lesions, and no evidence of cellulitis. MS/ Extremity: Pulses equal, no cyanosis. Neurovascular intact. Full, normal range of motion. 20:00 Head/face: Noted is no obvious of injury or deformity except tenderness, that is mild, of the right side of forehead that improves patient's headache. 20:00 Neuro: Orientation: is normal, Motor: moves all fours, Sensation: is normal, no obvious gross deficits. Vital Signs: 18:33 BP 146 / 75; Pulse 103; Resp 18 S; Temp 98.0(TE); Pulse Ox 96% on R/A; Weight 72.57 kg aa5 (R); Height 5 ft. 7 in. (170.18 cm) (R); Pain 6/10; 20:30 BP 139 / 72; Pulse 97; Resp 18; Pulse Ox 97% on R/A; ca1 18:33 Body Mass Index 25.06 (72.57 kg, 170.18 cm) aa5 MDM: 18:36 Patient medically screened. pm1 20:01 Data reviewed: vital signs. Data interpreted: Pulse oximetry: on room air is 96 %. pm1 Interpretation: normal. 20:13 Counseling: I had a detailed discussion with the patient and/or guardian regarding: the pm1 historical points, exam findings, and any diagnostic results supporting the discharge/admit diagnosis, radiology results, the need for outpatient follow up, to return to the emergency department if symptoms worsen or persist or if there are any questions or concerns that arise at home. 09/30 18:44 Order name: CT Head Brain wo Cont; Complete Time: 19:15 pm1 09/30 19:18 Order name: IV Saline Lock; Complete Time: 19:58 pm1 Administered Medications: 19:40 Drug: Benadryl 25 mg Route: IVP; Site: left antecubital; ca1 20:15 Follow up: Response: No adverse reaction; Pain is decreased ca1 19:45 Drug: Decadron - Dexamethasone 10 mg Route: IVP; Site: left antecubital; ca1 20:15 Follow up: Response: No adverse reaction; Pain is decreased ca1 19:48 Drug: Reglan 10 mg Route: IVP; Site: left antecubital; ca1 20:15 Follow up: Response: No adverse reaction; Pain is decreased ca1 Disposition: 10/01 07:13 Co-signature as Attending Physician, Duncan Anne MD I agree with the assessment and oz plan of care. Disposition: 09/30/18 20:13 Discharged to Home. Impression: Headache. - Condition is Stable. - Discharge Instructions: General Headache Without Cause, Tension Headache, Adult. - Prescriptions for Fiorinal 50- 325-40 mg Oral Capsule - take 1 capsule by ORAL route every 4 hours As needed - not to exceed 6 capsules per day; 20 capsule. - Medication Reconciliation Form, Thank You Letter, Antibiotic Education, Prescription Opioid Use form. - Follow up: Emergency Department; When: As needed; Reason: Worsening of condition. Follow up: Private Physician; When: 2 - 3 days; Reason: Recheck today's complaints, Continuance of care, Re-evaluation by your physician. - Problem is new. - Symptoms have improved. Signatures: Dispatcher [employer] EDMS Duncan Anne MD MD cha Calderon, Audri, RN RN aa5 Zoran Duke, LEARNING DESIGN SPECIALIST LEARNING DESIGN SPECIALIST pm1 Melida Davis RN RN ca1 Corrections: (The following items were deleted from the chart) 09/30 20:32 20:13 09/30/2018 20:13 Discharged to Home. Impression: Headache. Condition is Stable. ca1 Forms are Medication Reconciliation Form, Thank You Letter, Antibiotic Education, Prescription Opioid Use. Follow up: Emergency Department; When: As needed; Reason: Worsening of condition. Follow up: Private Physician; When: 2 - 3 days; Reason: Recheck today's complaints, Continuance of care, Re-evaluation by your physician. Problem is new. Symptoms have improved. pm1
--- NOTE | 2018-09-30 20:14 | ER ---
Nurse's Notes [facility] Name: Rosalina Dooley Age: 53 yrs Sex: Female : 1965 Arrival Date: 09/30/2018 Time: 18:24 Bed 30 Private MD: Domingo Mccabe Diagnosis: Headache Presentation: 09/30 18:31 Presenting complaint: Patient states: headache to right forehead that began 2 days go. aa5 Pt denies nausea/vomiting. Transition of care: patient was not received from another setting of care. Onset of symptoms was September 2018. Risk Assessment: Do you want to hurt yourself or someone else? Patient reports no desire to harm self or others. Initial Sepsis Screen: Does the patient meet any 2 criteria? No. Patient's initial sepsis screen is negative. Does the patient have a suspected source of infection? No. Patient's initial sepsis screen is negative. Care prior to arrival: None. 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 - Social history:: Smoking status: Patient/guardian denies using tobacco. - Ebola Screening: : No symptoms or risks identified at this time. Screenin:00 Abuse screen: Denies threats or abuse. Denies injuries from another. Nutritional ca1 screening: No deficits noted. Tuberculosis screening: No symptoms or risk factors identified. Fall Risk IV access (20 points). Assessment: 19:00 General: Appears in no apparent distress. comfortable, Behavior is calm, cooperative, ca1 appropriate for age. Pain: Complains of pain in forehead Pain does not radiate. Pain currently is 5 out of 10 on a pain scale. at worst was 8 out of 10 on a pain scale. Pain began 1 day ago. Neuro: Level of Consciousness is awake, alert, obeys commands, Oriented to person, place, time, situation. Cardiovascular: Heart tones S1 S2 present Capillary refill < 3 seconds Patient's skin is warm and dry. Respiratory: Airway is patent Respiratory effort is even, unlabored, Respiratory pattern is regular, symmetrical, Breath sounds are clear bilaterally. GI: Abdomen is flat, non-distended, Bowel sounds present X 4 quads. Abd is soft and non tender X 4 quads. : No deficits noted. No signs and/or symptoms were reported regarding the genitourinary system. EENT: No deficits noted. No signs and/or symptoms were reported regarding the EENT system. Derm: Skin is intact, is healthy with good turgor, Skin is pink, warm \T\ dry. Musculoskeletal: Circulation, motion, and sensation intact. Capillary refill < 3 seconds, Range of motion: intact in all extremities. 20:30 Reassessment: Patient appears in no apparent distress at this time. Patient and/or ca1 family updated on plan of care and expected duration. Pain level reassessed. Patient is alert, oriented x 3, equal unlabored respirations, skin warm/dry/pink. Patient states feeling better. Vital Signs: 18:33 BP 146 / 75; Pulse 103; Resp 18 S; Temp 98.0(TE); Pulse Ox 96% on R/A; Weight 72.57 kg aa5 (R); Height 5 ft. 7 in. (170.18 cm) (R); Pain 6/10; 20:30 BP 139 / 72; Pulse 97; Resp 18; Pulse Ox 97% on R/A; ca1 18:33 Body Mass Index 25.06 (72.57 kg, 170.18 cm) aa5 ED Course: 18:24 Patient arrived in ED. rg4 18:25 Domingo Mccabe MD is Private Physician. rg4 18:30 Arm band placed on. aa5 18:32 Triage completed. aa5 18:34 Zoran Duke NP is PHCP. pm1 18:34 Duncan Anne MD is Attending Physician. pm1 18:58 CT Head Brain wo Cont In Process Unspecified. EDMS 19:00 Patient has correct armband on for positive identification. Bed in low position. Call ca1 light in reach. Side rails up X 1. Pulse ox on. NIBP on. Door closed. Noise minimized. Lights dimmed. Warm blanket given. 19:00 No provider procedures requiring assistance completed. ca1 19:30 Inserted saline lock: 22 gauge in left antecubital area, using aseptic technique. ca1 19:32 Melida Davis, JODI is Primary Nurse. ca1 20:31 IV discontinued, intact, bleeding controlled, No redness/swelling at site. Pressure ca1 dressing applied. Administered Medications: 19:40 Drug: Benadryl 25 mg Route: IVP; Site: left antecubital; ca1 20:15 Follow up: Response: No adverse reaction; Pain is decreased ca1 19:45 Drug: Decadron - Dexamethasone 10 mg Route: IVP; Site: left antecubital; ca1 20:15 Follow up: Response: No adverse reaction; Pain is decreased ca1 19:48 Drug: Reglan 10 mg Route: IVP; Site: left antecubital; ca1 20:15 Follow up: Response: No adverse reaction; Pain is decreased ca1 Outcome: 20:13 Discharge ordered by MD. pm1 20:31 Discharged to home ambulatory, with significant other. ca1 20:31 Condition: stable 20:31 Discharge instructions given to patient, Instructed on discharge instructions, follow up and referral plans. medication usage, Demonstrated understanding of instructions, follow-up care, medications, Prescriptions given X 1. 20:32 Patient left the ED. ca1 Signatures: Dispatcher [employer] EDMS Emy De Jesus RN RN aa5 Zoran Duke, CORRECTIONAL NURSE CORRECTIONAL NURSE pm1 Katiana Ghotra rg4 Melida Davis RN RN ca1 Corrections: (The following items were deleted from the chart) 19:59 18:40 Benadryl 25 mg IVP in left antecubital ca1 ca1 20:06 18:30 Inserted saline lock: 22 gauge in left antecubital area, using aseptic technique. ca1 ca1
== END 2018-09-30 20:32 | disposition home or self-care (01) ==
LOC: ER 18:23
DX: R51 Headache (principal); I10 Essential (primary) hypertension; Z79.82 Long term (current) use of aspirin; Z86.73 Personal history of transient ischemic attack (TIA), and cerebral infarction without residual deficits
CPT/HCPCS: 70450; 96375; 96374; 99284; J2765; J1100

== ENCOUNTER 2019-11-03 19:06 | Emergency (ER) | payer OTHER ==
--- OUTSIDE RECORDS SUMMARY | 2019-11-03 19:09 | XMS REPORT | Clinical Summary ---
:1965 Author Organization [facility] Address [address] [place] [address] Care Team Providers Name Role Phone Domingo Mccabe MD Primary Care Provider Allergies No Known Allergies Medications Medication Sig Dispensed Refills Start Date End Date Status bisoprolol-hydrochlorothiazide 0 6 Active (ZIAC) 2.5-6.25 mg per tablet escitalopram (LEXAPRO) 10 MG tablet 0 12/17 Active Active Problems Problem Noted Date Leg [...] Health Maintenance Due Date Last Done Comments CERVICAL CANCER SCREENING 02/23/1985 BREAST CANCER SCREENING 02/23/2014 COLONOSCOPY SCREENING 02/23/2014 SHINGLES VACCINES (#1) 02/23/2014 INFLUENZA VACCINE 11/18/2019 Results Not on fileafter 11/02/2018 Advance Directives For more information, please contact: [phone] Type Date Recorded Patient Cardiac Rehab Nurse Explanati on Advance Directives, Living Will and 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
--- OUTSIDE RECORDS SUMMARY | 2019-11-03 19:10 | XMS REPORT | Continuity of Care Document ---
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 Misc her Neuro (disorder) Hypertensive Resolved Problem 10/03/2018 [place] disorder, Neuro, [place] systemic arterial In dical Center (disorder) CVA Active [facility], Rehabilita ti Medications Medication Details Route Status Patient Ordering Order Source Instructions Provider Date baclofen 10 mg oral 10 mg = 1 tab, Active 12/19 / [facility] tablet PO, Bedtime, # 2018 Neuro 30 tab, 3 Refill(s), Pharmacy: [place] [id number] Aspirin 81 MG 81 mg = 1 tab, Active 12/19/ mansi Enteric Coated PO, Daily, # 90 2018 N euro Tablet tab, 3 Refill(s) Escitalopram 10 mg, PO, Active 12/19/ [facility] Daily, 0 2018 Neuro Refill(s) Bisoprolol Fumarate 1 tab, PO, Active 12/19/ [facility] ischer 2.5 MG / Daily, 0 2018 Neuro Hydrochlorothiazide Refill(s) 6.25 MG Oral Tablet Warfarin Notes: Nurse to Inactive 10/23/ Art as ensure 2013 Medical documentation Center of patient education per anticoagulation policy. Avoid large intake of vitamin-K containing foods diet. (Same As: Coumadin) atorvastatin 40 mg 40 mg = 1 tab, Active 10/23/ [place] oral tablet PO, Bedtime, # 2014 Medic al 30 tab, 0 Center Refill(s) Acetaminophen 325 100.4 F, # 30 Active 10/23[facility] [place] MG Oral Tablet tab, 0 2014 Medical Refill(s) Center warfarin 1 mg oral 1 mg = 1 tab, Active [facility] tablet PO, Every Other 2013 Medical Day, # 30 tab, Center 0 Refill(s) warfarin 4 mg oral 4 mg = 1 tab, Active [facility] tablet PO, Daily, # 30 2013 Medical tab, 0 Center Refill(s) Docusate Sodium 100 100 mg = 1 cap, Active / [place] MG Oral Capsule PO, Daily, # 30 2013 Medical [Colace] cap, 0 Center Refill(s) Warfarin Notes: Nurse to Inactive [place] as ensure 2013 Medical documentation Center of patient education per anticoagulation policy. Avoid large intake of vitamin-K containing foods diet. (Same As: Coumadin) Warfarin Notes: Nurse to Inactive [place] as ensure 2013 Medical documentation Center of patient education per anticoagulation policy. Avoid large intake of vitamin-K containing foods diet. (Same As: Coumadin) Warfarin Notes: Nurse to Inactive [place] as ensure 2013 Medical documentation Center of patient education per anticoagulation policy. Avoid large intake of vitamin-K containing foods diet. (Same As: Coumadin) Warfarin Notes: Nurse to Inactive [place] as ensure 2013 Medical documentation Center of patient education per anticoagulation policy. Avoid large intake of vitamin-K containing foods diet. (Same As: Coumadin) Miralax Notes: Dissolve No Longer Art as in 8 oz of Active 2013 Medical water or juice. Center (Same as: Miralax) Warfarin Notes: Nurse to Inactive [place] as ensure 2013 Medical documentation Center of patient education per anticoagulation policy. Avoid large intake of vitamin-K containing foods diet. (Same As: Coumadin) Warfarin Notes: Nurse to Inactive [place] as ensure 2013 Medical documentation Center of patient education per anticoagulation policy. Avoid large intake of vitamin-K containing foods diet. (Same As: Coumadin) Potassium Chloride Notes: (Same Inactive [facility] as: K-Dur 20) 2014 Medical "Do Not Crush" Center With food and full glass of water Warfarin Notes: Nurse to Inactive [place] as ensure 2013 Medical documentation Center of patient education per anticoagulation policy. Avoid large intake of vitamin-K containing foods diet. (Same As: Coumadin) Acetaminophen 325 Notes: (Same No Longer [facility] MG / Hydrocodone as: [place] Active 2013 Medic al Bitartrate 5 MG 325/5) Do not C enter Oral Tablet [[place] exceed 4gm/day 5/325] of acetaminophen. Tylenol Notes: Do not No Longer [facility] exceed 4 Active 2013 Medical gm/day. (Same Center as: Tylenol) Docusate Sodium 100 Notes: (Same No Longer 10/16 [facility] MG Oral Capsule as: Colace) (Do Active 2013 Medical [Colace] Not Crush) Center potassium chloride Notes: (Same Inactive [place] as: Potassium 2013 Medical Chloride) Center Potassium Chloride Notes: (Same Inactive [place] as: K-Dur 20) 2013 Medical "Do Not Crush" Center With food and full glass of water Neutra-Phos Notes: (Same Inactive [place] as as: 2013 Medical Neutra-Phos) Center Each 1.25 gm pkt has 250mg phosphorous. Mix w/2.5oz water and stir. Lipitor Notes: (Same No Longer [place] as: Lipitor) Active 2013 [facility] Coumadin 5 mg, Route: Inactive [place] PO, Drug form: 2013 Medical TAB, Q5PM, Center Dosing Weight 75.17, kg, Start date: 10/15/13 17:00:00, Duration: 1 doses or times, Stop date: 10/15/13 17:00:00 Warfarin Notes: Nurse to Inactive [facility] as ensure 2013 Medical documentation Center of patient education per anticoagulation policy. Avoid large intake of vitamin-K containing foods diet. (Same As: Coumadin) pantoprazole Notes: For IV No Longer [facility] push Active 2013 Medical reconstitute Center with 10 ml 0.9% sodium chloride and push over 2 minutes. (Same as: Protonix) Aspirin 325 MG Notes: (Do Not No Longer [place] Enteric Coated Crush) Do not Active 2013 Me dical Tablet crush or chew. Center heparin, porcine Notes: porcine No Longer [place] heparin Active 2013 [facility] NS 1,000 mL 1,000 mL, Rate: No Longer [facility] 125 ml/hr, Active 2013 Medical Infuse over: 8 Center hr, Route: IV, Total Volume: 1,000, Start date: 10/14/13 23:39:00, Duration: 30 day, Stop date: 11/13/13 23:38:00 Sodium Chloride 250 mL, 250 Inactive [facility] 0.154 MEQ/ML ml/hr, Infuse 2013 Medic al Injectable Solution Over: 1 hr, Center Route: IV, ONCE, Priority: STAT, kg, Start date: 10/14/13 23:38:00, Duration: 1 doses or times, Stop date: 10/14/13 23:38:00 heparin additive 500 mL, Rate: No Longer [facility] 25,000 unit [14 21.05 ml/hr, Active 2013 Med ical unit/kg/hr] + Infuse over: Cente r Premix Diluent 23.8 hr, Route: Dextrose 5% 500 mL IV, Dosing Weight 75.17 kg, Total Volume: 500 mL, Start date: 10/14/13 23:35:00, Duration: 30 day, Stop date: 11/13/13 23:34:00 Saline Flush 0.9% Notes: (Same No Longer [facility] as: BD Active 2013 Medical Posiflush) Center Iohexol Special Inactive [facility] Instructions: 2013 Medical Dose = Center 2.2ml/kg, Max dose = 100ml -- "To be infused by Radiology Staff ONLY" Saline Flush 0.9% Notes: (Same No Longer [facility] as: BD Active 2013 Medical Posiflush) Center Sodium Chloride 1,000 mL, Rate: No Longer [place] 0.154 MEQ/ML 75 ml/hr, Active 2013 Medical Injectable Solution Infuse over: Center 13.3 hr, Route: IV, Total Volume: 1,000, Start date: 10/14/13 18:54:00, Duration: 30 day, Stop date: 11/13/13 18:53:00 Saline Flush 0.9% Notes: (Same No Longer [facility] as: BD Active 2013 Medical Posiflush) Center Allergies, Adverse Reactions, Alerts Substance Category Reaction Severity Reaction Status Date Comments S ource type Reported No Known Assertion Drug Misch er Medication allergy Neuro Allergies Immunizations No Data Provided for This Section Results Order Name Results Value Reference Date Interpretation Comments Mar rce Range HEMATOLOGY INR 2.45 0.85 - 10/23 <sup[place]7</sup[place] 04.[place] nterpretive Medical Data: Center RECOMMENDED RANGES FOR PROTIME INR:
2.0-3.0 for most medical and surgical thromboemboli c states.
2.5-3.5 for artificial heart valves and recurrent embolism.<br/ >
INR SHOULD BE USED ONLY FOR PATIENTS ON STABLE ANTICOAGULANT THERAPY. HEMATOLOGY PT 26.1 12.0 - 10/23 [facility] HEMATOLOGY INR 2.66 0.85 - 10/22 <sup>8</sup[place] 04.[place] nterpretive Medical Data: Center RECOMMENDED RANGES FOR PROTIME INR:
2.0-3.0 for most medical and surgical thromboemboli c states.
2.5-3.5 for artificial heart valves and recurrent embolism.<br/ >
INR SHOULD BE USED ONLY FOR PATIENTS ON STABLE ANTICOAGULANT THERAPY. HEMATOLOGY PT 27.8 12.0 - 10/22 [facility] HEMATOLOGY PT 24.0 12.0 - 10/21 [facility] HEMATOLOGY INR 2.20 0.85 - 10/21 <sup>9</sup>[place] 04.[place] nterpretive Medical Data: Center RECOMMENDED RANGES FOR PROTIME INR:
2.0-3.0 for most medical and surgical thromboemboli c states.
2.5-3.5 for artificial heart valves and recurrent embolism.<br/ >
INR SHOULD BE USED ONLY FOR PATIENTS ON STABLE ANTICOAGULANT THERAPY. HEMATOLOGY PTT 77.0 22.9 - 10/20 <sup>10[place]sup> [place] . Interpretive Medical Data: Heparin Center Therapeutic Range: 57 - 92 Seconds HEMATOLOGY PTT 70.0 22.9 - 08/ <sup>11</sup> [place] . Interpretive Medical Data: Heparin Center Therapeutic Range: 57 - 92 Seconds HEMATOLOGY PTT 108.1 22.9 - 08/ <sup>12</sup> [place] Result Medical Comment: Center Critical Result(s) called to Roddy Ellison at 10/19/2013 15:03 by haroon bryant. Read back OK.
<sup> 13</sup>Inter pretive Data: Heparin Therapeutic Range: 57 - 92 Seconds CHEM PANEL Magnesium Lvl 1.7 1.8 - 2.4 10/17 [facility] x[facility] CHEM PANEL Phosphorus 2.8 2.5 - 4.5 10/17 [facility] ELECTROLYTE AGAP 12.3 10.0 - 10/17 [facility] S 20.0 [facility] ELECTROLYTE eGFR 114 10/17 <sup>1</sup>R [facility] Medical Comment: The Center eGFR is calculated [...] Calcium Lvl 8.2 8.5 - 10.5 10/17 [facility] ELECTROLYTE Chloride Lvl 107 95 - 109 10/17 [facility] ELECTROLYTE CO2 26 24 - 32 10/17 [facility] ELECTROLYTE Glucose Lvl 94 70 - 99 10/17 <sup>4</sup>I [facility] nterpretive Medical Data: Adult Center reference range values reflect the clinical guidelines
of the [place] [employer]. ELECTROLYTE Sodium Lvl 142 135 - 145 10/17 [facility] s [facility] ELECTROLYTE Potassium Lvl 3.3 3.5 - 5.1 10/17 [place] [facility] ELECTROLYTE BUN 7 7 - 22 10/17 [facility] ELECTROLYTE Creatinine 0.5 0.5 - 1.4 08 l [facility] HEMATOLOGY Hgb 13.5 12.0 - 08 16.0 Medical [place] HEMATOLOGY Hct 41.1 36.0 - 08 48.0 /2013 Medical [place] HEMATOLOGY MCV 82.3 81.0 - 10/17 99.0 /2013 [facility] HEMATOLOGY WBC 7.6 3.7 - 10.4 08 [facility] HEMATOLOGY RBC 5.00 4.20 - 08 5.40 /2013 [facility] HEMATOLOGY MPV 9.0 7.4 - 10.4 10/17 [facility] HEMATOLOGY Platelet 178 133 - 450 10/17 [facility] HEMATOLOGY MCHC 32.9 32.0 - 08 36.0 /2013 [facility] HEMATOLOGY MCH 27.0 27.0 - 08 31.0 [facility] HEMATOLOGY RDW 18.1 11.5 - 08 14.5 [facility] HEMATOLOGY Eosinophils 1.5 0.0 - 4.0 08 [facility] HEMATOLOGY Eosinophils # 0.1 0.0 - 0.5 10/17 [facility] HEMATOLOGY Basophils # 0.1 0.0 - 0.2 10/17 [facility] HEMATOLOGY Segs-Bands # 4.3 1.5 - 8.1 10/17 [facility] HEMATOLOGY Basophils 0.8 0.0 - 1.0 10/17 [facility] HEMATOLOGY Lymphocytes # 2.4 1.0 - 5.5 08 [facility] HEMATOLOGY Monocytes # 0.7 0.0 - 0.8 08 [facility] HEMATOLOGY Lymphocytes 31.1 20.0 - 08 40.0 [facility] HEMATOLOGY Monocytes 9.7 2.0 - 12.0 08 [facility] HEMATOLOGY Segs 56.9 45.0 - 08 [place] 75.0 [facility] CHEM PANEL Phosphorus 2.2 2.5 - 4.5 10/16 [facility] CHEM PANEL Magnesium Lvl 1.8 1.8 - 2.4 10/16 [facility] ELECTROLYTE AGAP 14.3 10.0 - 10/16 [facility] S 20.0 [facility] ELECTROLYTE eGFR 123 10/16 <sup>2</sup>R [facility] Medical Comment: The Center eGFR is calculated [...] Lvl 97 70 - 99 10/16 <sup>5</sup>I [facility] nterpretive Medical Data: Adult Center reference range values reflect the clinical guidelines
of the [place] [employer]. ELECTROLYTE BUN 11 7 - 22 10/16 [facility] ELECTROLYTE Sodium Lvl 140 135 - 145 10/16 [facility] s [facility] ELECTROLYTE Potassium Lvl 3.3 3.5 - 5.1 10/16 [place] [facility] ELECTROLYTE Chloride Lvl 106 95 - 109 10/16 [facility] ELECTROLYTE Creatinine 0.4 0.5 - 1.4 10/16 [facility] s S [facility] ELECTROLYTE Calcium Lvl 8.6 8.5 - 10.5 10/16 [facility] ELECTROLYTE CO2 23 24 - 32 10/16 [facility] HEMATOLOGY Monocytes # 0.9 0.0 - 0.8 10/16 [facility] HEMATOLOGY Eosinophils # 0.1 0.0 - 0.5 10/16 [facility] HEMATOLOGY Eosinophils 0.5 0.0 - 4.0 10/16 a s [facility] HEMATOLOGY Lymphocytes # 2.3 1.0 - 5.5 10/16 [facility] HEMATOLOGY Basophils 0.4 0.0 - 1.0 10/16 [facility] HEMATOLOGY Segs-Bands # 6.6 1.5 - 8.1 10/16 [facility] HEMATOLOGY Monocytes 9.2 2.0 - 12.0 10/16 [facility] HEMATOLOGY Lymphocytes 23.4 20.0 - 10/16 [place] 40.0 [facility] HEMATOLOGY Segs 66.5 45.0 - 10/16 [place] 75.0 [facility] HEMATOLOGY Platelet 185 133 - 450 10/16 [facility] HEMATOLOGY MPV 8.8 7.4 - 10.4 10/16 [facility] HEMATOLOGY MCH 26.6 27.0 - 10/16 31.0 [facility] HEMATOLOGY Hct 40.8 36.0 - 10/16 [place] 48.0 [facility] HEMATOLOGY MCHC 32.5 32.0 - 10/16 [place] 36.0 [facility] HEMATOLOGY RDW 17.6 11.5 - 10/16 14.5 [facility] HEMATOLOGY MCV 81.7 81.0 - 10/16 99.0 [facility] HEMATOLOGY RBC 4.99 4.20 - 10/16 [place] 5.40 /2013 [facility] HEMATOLOGY Hgb 13.3 12.0 - 10/16 [place] 16.0 [facility] HEMATOLOGY WBC 10.0 3.7 - 10.4 10/16 [facility] CHEM PANEL Phosphorus 3.1 2.5 - 4.5 10/15 [facility] CHEM PANEL Magnesium Lvl 1.8 1.8 - 2.4 10/15 [facility] ELECTROLYTE AGAP 16.4 10.0 - 10/15 S 20.0 [facility] ELECTROLYTE eGFR 107 10/15 <sup>3</sup>R as esult Medical Comment: The Center eGFR is [...] Calcium Lvl 8.9 8.5 - 10.5 10/15 [facility] ELECTROLYTE Chloride Lvl 108 95 - 109 10/15 [facility] ELECTROLYTE CO2 22 24 - 32 10/15 [facility] ELECTROLYTE Sodium Lvl 143 135 - 145 10/15 [facility] s [facility] ELECTROLYTE Creatinine 0.6 0.5 - 1.4 10/15 [facility] ELECTROLYTE BUN 12 7 - 22 10/15 [facility] ELECTROLYTE Glucose Lvl 113 70 - 99 10/15 <sup>6</sup>I nterpretive Medical Data: Adult Center reference range values reflect the clinical guidelines
of the [place] [employer]. ELECTROLYTE Potassium Lvl 3.4 3.5 - 5.1 10/15 [place] [facility] HEMATOLOGY Lymphocytes # 0.9 1.0 - 5.5 10/15 [facility] HEMATOLOGY Monocytes # 0.1 0.0 - 0.8 10/15 a [facility] HEMATOLOGY Lymphocytes 10.0 20.0 - 10/15 [place] 40.0 [facility] HEMATOLOGY Segs 88.7 45.0 - 10/15 [place] 75.0 [facility] HEMATOLOGY Monocytes 1.2 2.0 - 12.0 10/15 [facility] HEMATOLOGY Basophils 0.1 0.0 - 1.0 10/15 [facility] HEMATOLOGY Segs-Bands # 7.6 1.5 - 8.1 10/15 as /2013 [facility] HEMATOLOGY Platelet 192 133 - 450 10/15 [facility] HEMATOLOGY MPV 8.7 7.4 - 10.4 10/15 [facility] HEMATOLOGY Hgb 13.4 12.0 - 10/15 [place] 16.0 /2013 [facility] HEMATOLOGY Hct 41.4 36.0 - 10/15 [place] 48.0 [facility] HEMATOLOGY RDW 18.0 11.5 - 10/15 [place] 14.5 [facility] HEMATOLOGY MCV 81.7 81.0 - 10/15 [place] 99.0 /2013 [facility] HEMATOLOGY MCH 26.5 27.0 - 10/15 [place] 31.0 [facility] HEMATOLOGY WBC 8.6 3.7 - 10.4 10/15 [facility] HEMATOLOGY RBC 5.06 4.20 - 10/15 5.40 /2013 [facility] HEMATOLOGY MCHC 32.4 32.0 - 10/15 [place] 36.0 [facility] LIPIDS VLDL 8 10/15 [facility] LIPIDS LDL 110 <=99 mg/dL 10/15 [facility] (Calculated) [facility] LIPIDS Trig 41 <=149 10/15 [facility] mg/dL [facility] LIPIDS Chol 189 <=199 10/15 [facility] mg/dL [facility] LIPIDS HDL 71 >=61 mg/dL 10/15 [facility] LIPIDS CHD Risk 2.66 3.90 - 10/15 [place] 5.80 /2013 [facility] SPECIAL Hgb A1C 5.1 <=5.6 % 10/15 [facility] CHEMISTRY [facility] PARATHYROID Ca Ion WB 1.14 1.05 - 10/15 [place] PROFILE . [facility] PARATHYROID Ca Norm WB 1.11 . - 10/15 [facility] PROFILE 04.12 [facility] URINE AND UA Blood Moderate Negative 10/14 [facility] STOOL *ABN* /2013 Medical (10/14/13 5:00 PM) [place] URINE AND UA Bili Negative Negative 10/14 [facility] STOOL *NA* /2013 Medical (10/14/13 5:00 PM) Center URINE AND UA Ketones >=80 mg/dL Negative 10/14 [facility] s STOOL mg/dL /2013 [facility] URINE AND UA Glucose Negative Negative 10/14 [facility] (10/14/13 5:00 PM) [facility] URINE AND UA 0.2 0.1 - 1.0 10/14 [facility] Urobilinogen /2013 [facility] URINE AND UA Leuk Est Negative Negative 10/14 [facility] (10/14/13 5:00 PM) [facility] URINE AND UA Nitrite Negative Negative 10/14 [facility] (10/14/13 5:00 PM) [facility] URINE AND UA Protein Negative Negative 10/14 [facility] (10/14/13 5:00 PM) [facility] URINE AND UA pH 6.5 5.0 - 8.0 10/14 [facility] URINE AND UA Spec Grav 1.020 <=1.030 10/14 [facility] URINE AND UA Color Yellow Yellow 10/14 [facility] *NA* /2013 [facility] (10/14/13 5:00 PM) [place] URINE AND UA Turbidity Slight Cloudy Clear 10/14 [facility] (10/14/13 5:00 PM) [facility] URINE AND UA Mucus Rare /LPF None Seen 10/14 [facility] STOOL /LPF /2013 [facility] URINE AND UA Bacteria Occasional None Seen 10/14 [place] STOOL /HPF /HPF [facility] URINE AND UA WBC 0-2 /HPF None Seen 10/14 [facility] STOOL /HPF /2013 [facility] URINE AND UA RBC 11-20 /HPF 0 - 2 10/14 [place] [facility] URINE AND UA Sq Epi Rare /LPF Few /LPF 10/14 [place] STOOL [facility] URINE AND Micro? Performed 10/14 [facility] (10/14/13 5:00 PM) [facility] CARDIAC CK MB Index 1.4 0.0 - 2.5 10/14 [facility] ENZYMES [facility] CARDIAC CK MB 0.7 0.5 - 3.6 10/14 [facility] ENZYMES [facility] CARDIAC Troponin-I <0.02 0.00 - 10/14 [facility] ENZYMES 0.40 /2013 [facility] CARDIAC Total CK 49 12 - 191 10/14 [place] ENZYMES [facility] HEMATOLOGY Basophils # 0.0 0.0 - 0.2 10/14 [facility] HEMATOLOGY Eosinophils # 0.0 0.0 - 0.5 10/14 [place] [facility] HEMATOLOGY RBC Morph Normal 10/14 [facility] (10/14/13 4:38 PM) [facility] HEMATOLOGY Plt Morph Normal 10/14 [facility] (10/14/13 4:38 PM) [facility] HEMATOLOGY Eosinophils 0.3 0.0 - 4.0 10/14 [facility] Pathology Reports No Data Provided for This Section Diagnostic Reports No Data Provided for This Section Consultation Notes No Data Provided for This Section Discharge Summaries No Data Provided for This Section History and Physicals No Data Provided for This Section Vital Signs Vital Sign Value Date Comments Source BMI Calculated 26.53 12/19/2017 [facility] Neuro Weight 74.545 12/19/2017 [facility] Height 167.64 cm 12/19/2017 [facility] Neuro Systolic (mm Hg) 133 12/19/2017 [facility] [place] Diastolic (mm Hg) 77 12/19/2017 [facility] Ne uro Heart Rate 64 12/19/2017 [facility] Neuro Respitory Rate 14 10/23/2013 [facility] Temperature Oral (F) 98.3 F 10/23/2013 [facility] Heart Rate 90 10/23/2013 [facility] Systolic (mm Hg) 131 10/23/2013 [facility] dical Center Diastolic (mm Hg) 93 10/23/2013 [facility] Temperature Oral (F) 98.2 F 10/23/2013 [facility] Respitory Rate 14 10/23/2013 [facility] Heart Rate 81 10/23/2013 [facility] Systolic (mm Hg) 140 10/23/2013 [facility] dical Center Diastolic (mm Hg) 96 10/23/2013 [facility] edical Center Diastolic (mm Hg) 90 10/23/2013 [facility] Center Systolic (mm Hg) 128 10/23/2013 [facility] Temperature Oral (F) 98.7 F 10/23/2013 [facility] Heart Rate 76 10/23/2013 [facility] Respitory Rate 18 10/23/2013 [facility] Weight 75.17 10/15/2013 [facility] BMI Calculated 25.2 10/15/2013 [facility] Height 172.72 cm 10/15/2013 [facility] Encounters Location Location Encounter Encounter Reason Attending ADM DC Stat us Source Details Type Number For Provider Date Date Visit [facility] [id number] [place] 10/14 10/23 [facility] Omid /2013 [facility] Outpatient [id number] LALITHA 12/19 Active [facility] Gu[facility] MNA Outpatient [id number] Lalitha 12/19 12/20 [facility] Neurology [facility] /2017 [facility] Outpatient [id number] LALITHA 01/30 Active [facility] [place] MNA Ambulatory [id number] Lalitha 01/30 01/30 [facility] Neurology Pre-Reg [facility] Neuro [facility] MNA Outside [id number] 03/14 03/16 [facility] Neurology Medical /2017 Neuro Page Records Procedures Procedure Code Date Perfomer Comments Source [place]ision [place] [id number] Critical access hospital Neuro,[facility] Assessment and Plan Assessment and Plan Date Source Extracted from:Title: [facility] Progress Note 10/23/2013 [facility] Author: Clare Cooper MD Date: 10/22/13 ATTENDING PHYSICIAN/PAGER NUMBER: Clare Cooper, pager [phone]. Code status: Full code. HPI: 48 year old female with no significant P MH admitted with left frontal CVA. She was found to have left ICA dissection, unclear etiology. SUBJECTIVE: No pain. OBJECTIVE: Vitals and Temp: Vitals Tmp(F) Pulse BP RR SpO2 FIO2 10/22 19:33 97.7 83 125/85 18 100 --- 10/22 15:52 98.0 86 118/81 18 98 --- 10/22 11:59 97.3 69 125/79 16 98 --- 10/22 08:26 99.5 82 123/85 16 98 --- 10/22 03:51 96.4 71 118/85 18 99 --- 24 Hr Tmax: 99.5F (37.50c) at 10/22 08:2 6 Vital Signs are the last 5 in the past 48 hours. PHYSICAL EXAM: Expressive aphagia Right sided hemiparesis, improving. RLE antigravity. Right distal upper extremity antigravity, right proximal upper extremity weakness. Follows commands. Heart is regular, normal S1 and S2. No m/r/g. No edema. Lungs with decreased breath sounds at th e bases. Normal respiratory effort. No cyanosis. Abdomen soft, nontender, normal bowel sounds. No peritoneal signs. MEDICATION LIST: Scheduled Meds (4):atorvastatin (Lipitor ), docusate (Colace 100 mg oral capsule), polyethylene glycol 3350 (MiraLax), sodium chloride (Saline Flush 0.9%) Unscheduled Meds: None PRN Meds (3):acetaminophen-hydrocodone ( [place] 5/325 oral tablet), acetaminophen (Tylenol), sodium chloride (Saline Flush 0.9%) One Time Meds: None Continuous Infusions: None Labs (Last four charted values) PT H 27.8 (Oct) H 24.0 (OCT 21) H 25.2 (OCT 20) H 23.8 (OCT 19) INR H 2.66 (Oct) H 2.20 (OCT 21) H 2.34 (OCT 20) H 2.17 (OCT 19) PTT H 77.0 (Oct 4) H 70.0 (OCT 19) C 108.1 (OCT 19) H 40.5 (OCT 19) ASSESSMENT and PLAN Left ICA dissection Acute ischemic stroke - LMCA Hypokalemia Hypomagnesemia The patient is progressing well with PT, she was able to ambulate a short distance today. As per Stroke recommendations the patien t will need anticoagulation for 3 months followed by CTA. If clot still present she will need an additional 3 months of anticoagulation. She will need follow up w ith the Stroke clinic and further work u p for hypercoaguable disorder versus genetic testing. Continue warfarin and statin. Prophylaxis: INR is therapeutic. Dispo: awaiting rehab placement Extracted from:Title: Clinical Document Author: Grant Jacques DO Date: 10/14/13 Stroke History and Physical Requesting Physician/Service: ER Chief Complaint: Stroke History of Present Illness This is a 48 year old female with no per tinent medical history who presents from [facility] after having a stroke. Imaging revealed a left frontal ischemic stroke. Apparently, she was last seen normal last nig ht at unknown time. Last night, patient developed RUE numbness with a headache and went to the ER. Imaging at [facility] revealed no stroke, she was thought to have a complex migraine and sent home with [place]. Early this morning she developed sudden aphasia (unknown time, most likely ~9am) and returned to the same ER. Family noticed she was dragging her right leg and inability to articulate words. She was fo und to have an left frontal ischemic str kim on repeat CTH. She took 1 tab of norco yesterday night, developed neurological changes the following morning. After she was found to have a stroke, she was th en transferred to [facility] for further acute care. She [...] : no frequency, dysuria, burning, hematuria, no urin sona incontinence 7. NEURO: see HPI 8. SKIN: no rash or lesion 9. ENDOCRINE: No constipation, palpitation or diarrhea or fatigue 10. MUSCULOSKELETAL: No joint pain Past Medical History: None Past Surgical History: None Family Medical History: Diabetes and HTN (maternal) Social History: Lives with family. Denies smoking or alcohol use. No drug us e. Medications: Allergies: Physical Exam: Vital Signs: GENERAL: Awake, alert HEENT: - Normocephalic and atraumatic LUNGS - Clear to auscultation bilaterally with no wheez es CV - S1S2 RRR, no m/r/g, equal pulses bilaterally. ABDOMEN - Soft, nontender, nondistended with normoactiv e BS NEUROLOGY: Expressive aphasia, able to follow commands intermittently, confused, RUE hemiplegia, RLE hemiparesis (3/5 strength) Speech: fluent, comprehension intact, repetition and na ricardo intact slunk skinner: 2-12 intact Motor: Tone: Normal Power: RUE 0/5, RLE 3/5; left side 5/5 Reflexes: 1+ RUE, 1+ RLE, 2+ left side Plantar: downgoing toes on left foot, unresponsive on r ight Drift: present RLE Sensory: Decreased light touch and pin-prick RUE and RLE Cerebellar signs: deferred Gait: deferred NIH Stroke Scale (NIHSS) 0 1a. Level of Consciousness; 0-alert 1-drowsy 2-stupor 0 1a. Level of Consciousness; 0-alert 1-drowsy 2-stupor 0 1a. Level of Consciousness; 0-alert 1-drowsy 2-stupor 1 1b. LOC Questions month and age; 0-both 1-one 2-neit her 1 1c. LOC Commands open/close eyes, gr ip/release non-paretic hand; 0-both 1- one 2-neither 0 2. Best Gaze; 0-nl 1-partial 2-forced gaze 0 2. Best Gaze; 0-nl 1-partial 2-forced gaze 0 2. Best Gaze; 0-nl 1-partial 2-forced gaze 0 3. Visual White; 0-No visual loss. 1- Partial hemianopia 2-Complete 3-Bilateral 0 2. Best Gaze; 0-nl 1-partial 2-forced gaze 0 2. Best Gaze; 0-nl 1-partial 2-forced gaze 0 3. Visual White; 0-No visual loss. 1- Partial hemianopia 2-Complete 3-Bilateral 0 2. Best Gaze; 0-nl 1-partial 2-forced gaze 0 3. Visual White; 0-No visual loss. 1- Partial hemianopia 2-Complete 3-Bilateral 2 4. Facial Palsy; 0-none 1-minor 2-partial 3-complete 4 5. Motor R arm; 0-No drift 1-Drift 2-Some antigravity 3-No antigravity 4-No movement 2 6. Motor R leg; 0-No drift 1-Drift 2-Some antigravity 3-No antigravity 4-No movement 0 7. Motor L arm; 0-No drift 1-Drift 2-Some antigravity 3-No antigravity 4-No movement 6. Motor R leg; 0-No drift 1-Drift 2-Some antigravity 3-No antigravity 4- No movement 6. Motor R leg; 0-No drift 1-Drift 2-Some antigravity 3-No antigravity 4- No movement 0 7. Motor L arm; 0-No drift 1-Drift 2-Some antigravity 3-No antigravity 4-No movement 6. Motor R leg; 0-No drift 1-Drift 2-Some antigravity 3-No antigravity 4- No movement 7. Motor L arm; 0-No drift 1-Drift 2-Some antigravity 3-No antigravity 4- No movement 0 8. Motor L leg; 0-No [...] 2-severe 3-mute 12. Dysarthria; 0-nl 1-mild/mod 2-severe x-untes table 9. Limb Ataxia; 0 absent 1 - [...] 2-severe 3-mute 12. Dysarthria; 0-nl 1-mild/mod 2-severe x-untes table 0 9. Limb Ataxia; 0 absent 1 - 1limb 2 - 2 limbs 1 10. Sensory; 0-nl 1-partial loss 2-dense loss 2 11. Best Language; 0-nl 1-mild/mod 2-severe 3-mute 2 12. Dysarthria; 0-nl 1-mild/mod 2-severe x-unte stable 13. Extinction and Inattention (formerl y Neglect); 0-none 1-partial 2-complete TOTAL SCORE 15 THE FOLLOWING WERE PRESENT ON ADMISSION: THE FOLLOWING WERE PRESENT ON ADMISSION (POA) PLANT TECHNICAL SPECIALIST Hemiparesis Hemiplegia EKG: pending Imaging: CT head: Left Parieto-Temporal Ischemic Infarct CTA Head and Neck: pending MRI brain wo contrast: pending 2 D Echo: ordered CXR: No organized consolidation, pleural effusion or pneumot horax. Thoracic dextroscoliosis. Lab w/up: 24hr Labs 10/14 [...] a 48 year old female with no per tinent medical history who presents from [facility] after the window of tPA with a L MCA stroke. Imaging revealed a left parieto-temporal ischemic stroke. Physical exam is positive for RUE hemiplegia, RLE olga paresis, right facial droop, able to follow commands [...] completed. - Will start permissive HTN systolic goa l of 140-180s and then normalize over the next 24-48h. - q1hr Neurology Checks. - Lipitor 80 mg po daily, will order lip id panel and hepatic panel and adjust Lipitor accordingly. LDL Goal of <70 - Hemaglobin A1c. Goal < 6.5. 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 We will admit to Stroke t eam. Grant Jacques DO [facility], Neurology-PGY2 Pager#: [phone], [id number] MSO#: [id number] STROKE NEUROLOGY STAFF I have seen and examined the patient. Vida navarrete, I have discussed the case with and reviewed Dr. Jacques's note and agree with the history, exam, assessment and plan. See note below for additio ns and/or exceptions and my findings. I have personally viewed the patient's radiographic studies and laboratory tests. Notable Labs: LDL: 110; CT-angiogram head/neck: + occluded term inal left ICA along with an extensive left extracranial ICA dissection. MRI brain: + acute infarction in the lef t BG, insula and fronto-opercular regions. No hemorrhage. Transthoracic Echocardiogram: pending Assessment / Plan: 48110 Ischemic Stroke secondary to left carotid dissection- 434.11 and 443.21 Current suspected etiology: other (dissection). Continue evaluation: transthoracic e chocardiogram, cardiac telemetry, laboratory tests, follow-up reports from neuroimaging. Treatment: anticoagulation with IV-h eparin and plan for 3 months of coumadin with goal INR of 2-3. Start coumadin tonight. PT/OT/speech therapy evaluation and tr eatment. DVT prophylaxis - - SCDs and ADRYAN hose - Heparin IV I have talked the patient and available family in detail about the warning signs of stroke; the importance of their early recognition and activation of EMS. The stroke risk factors have also been clearl y identified and communicated to the pat ient. The importance of taking prescribed medication for secondary stroke prevention and being regular in follow up appointments has also been emphasized. Bhanu Roberson M.D. Software Developer Manager Dept of Neurology [phone] (pager) [phone] (cell) Plan of Care No Data Provided for This Section Social History Social History Date Source Social History TypeResponse 10/15/2013 [facility] Alcohol Current, Type Beer. Frequency: 3-5 time s per week. Alcohol use interferes with work or home: No. Drinks more than intended: No. Others hurt by drinking: No. Ready to change: No. Household alcohol concerns: No. Smoking Status Never smoker; Exposure to Tobacco Smoke None; Cigarette Smoking Last 365 Days No; Reg Smoking Cessation Counseling No entered on: 12/19/17 Social History TypeResponse 10/15/2013 [facility] Alcohol Use: Current, Type: Beer, Frequency: 3-5 times per week, Has alcohol use interfered with work or home life? No, Do you ever drink more than intended? No, Has anyone been hurt or at risk by your drinking ? No, Ready to change: No, Concerns about alcohol use in [facility]: No Smoking Status Never smoker, Exposure to Tobacco Smoke None, Cigarette Smoking Last 365 Days No, Reg Smoking Cessation Counseling No Family History No Data Provided for This Section Advance Directives No Data Provided for This Section Functional Status No Data Provided for This Section
--- OUTSIDE RECORDS SUMMARY | 2019-11-03 19:12 | XMS REPORT | Summary of Care ---
:1965 Author Organization [facility] - [facility] Address [address] [place] [id number] Care Team Providers Name Role Phone Unavailable Primary Care Provider Unavailable Reason for Visit Reason Comments Exposure Encounter Details Date Type Department Care Team Description 09/26/2019 Laboratory Only [facility] Family Ana María Chambers, VANESSA [address] [place] [id number] Exposure to Covid-19 [facility], [facility] Fam Pob I Virus (Primary Dx) [address] [place] [phone] Allergies Not on Filedocumented as of this encounter (statuses as of 09/26/2019) Medications Not on filedocumented as of this encounter (statuses as of 09/26/2019) Active Problems Not on filedocumented as of this encounter (statuses as of 09/26/2019) Social History Tobacco Use Types Packs/Day Years Used Date Never Assessed Sex Assigned at Date Recorded Not on file Job Start Date Occupation Industry Not on file Not on file Not on file Travel History Travel Start Travel End No recent travel history available. COVID-19 Exposure Response Date Recorded In the last month, have you been in contact with Yes 09/25/2019 5:24 PM CDT someone who was confirmed or suspected to have Coronavirus / COVID-19? documented as of this encounter Last Filed Vital Signs Not on filedocumented in this encounter Plan of Treatment Name Type Priority Associated Diagnoses Order S chedule COVID-19 (PCR MOLECULAR LAB Routine Exposure to Covid -19 Expected: 09/26/2019, TESTING) Virus Expires: 2020 Health Maintenance Due Date Last Done Comments HEPATITIS C (HCV) SCREEN 1965 DTaP,Tdap,and Td Vaccines (1 - 02/23/1975 Tdap) Depression Screening 1976 PAP SMEAR 02/23/1985 Breast Cancer Screening 2004 (MAMMOGRAM) COLONOSCOPY 02/23/2014 Zoster Recombinant Vaccine 02/23/2014 (SHINGRIX) (1 of 2) INFLUENZA VACCINE (#1) 2019 PNEUMOCOCCAL 0-64 YEARS COMBINED Aged Out No longer eligible based on SERIES patient's age to complete this topic documented as of this encounter Results Not on filedocumented in this encounter Visit Diagnoses Diagnosis Exposure to Covid-19 Virus - Primary documented in this encounter Additional Health Concerns Infection Onset Date Last Indicated Resolved Time COVID-19 Rule Out 09/26/2019 09/26/2019 documented as of this encounter Insurance Payer Benefit Plan / Subscriber ID Effective Dates Phone Addre ss Type Group MEDICARE MEDICARE PART xxxxxxxxxxx 2016-Bandar [phone] [facility] Medicare A & B t 2 [id number] RANDA JULIO [id number] documented as of this encounter
--- OUTSIDE RECORDS SUMMARY | 2019-11-03 19:12 | XMS REPORT | Continuity of Care Document ---
:[address] [facility] t Address [address] [place] [address] Care Team Providers Name Role Phone Mckinley Mccabe MD Primary Care Physician Lab, Fam Pob I Attending Clinician Unavailable Thuan Garcias Attending Clinician Dotty Cooper Attending Clinician Chata Roberson Admitting Clinician Problems Condition Condition Condition Status Onset Resolution Last Treating Co mments Source Name Details Category Date Date Treatment Clinician Date Leg pain, Leg pain, Disease Active 2015-03 [place] right right 04-15 Methodi 00:00: st 00 CVA Diagnosis Active 2013-12-17 Mem oria 7-29 15:36:00 l CVA 18:58: Gaffney 00 Active 10/14/2013 [facility] Cerebrovas Problem Resolve 2018-10-03 Memoria cular d 13:06:43 l accident Gucci (disorder) Cerebrovas cular accident (disorder) Resolved Problem 10/03/2018 [facility] Hypertens[place] Problem Resolve 2018-10-03 Memoria ve d 13:06:43 l disorder, Gucci systemic Hypertensi arterial ve (disorder) disorder, systemic arterial (disorder) Resolved Problem 10/03/2018 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 Allergies, Adverse Reactions, Alerts Allergy Allergy Status Severity Reaction(s) Onset Inactive Treating Comm ents Source Name Type Date Date Clinician No Known No Known Active Memori a Medicati Medicati l on on Gucci Allergie Allergie s s Family History Family Member Diagnosis Comments Start Date Stop Date Source Natural father Cancer [facility] thodist Natural mother Varicose Veins Trino Rosales Social History Social Habit Start Date Stop Date Quantity Comments Source Sex Assigned At [facility] ethodist Alcohol intake 2016-10-19 2016-10-19 Current [facility] thodist 00:00:00 00:00:00 non-drinker of alcohol (finding) Social History 2013-10-15 2013-10-15 [facility] 03:16:14 03:16:14 Smoking Status Start Date Stop Date Source Never smoker [place] Medications Ordered Filled Start Stop Current Ordering Indication Dosage Frequency Signature Comments Components Source Medication Medication Date Date Medication? Clinician (SIG) Name Name baclofen 10 2017-03 Yes 10 mg = 1 M emoria mg oral 0-03 tab, PO, l tablet 20:30: Bedtime, # Fadia nn 00 30 tab, 3 Refill(s), Pharmacy: [place] [id number] Aspirin 81 2017-03 Yes 81 mg = 1 Me moria MG Enteric 0-03 tab, PO, l Coated 20:22: Daily, # Gaffney Tablet 00 90 tab, 3 Refill(s) Escitalopra 2017-03 Yes 10 mg, PO, Memoria m 0-03 Daily, 0 l 19:50: Refill(s) Gaffney 00 Bisoprolol 2017-03 Yes 1 tab, PO, M emoria Fumarate 0-03 Daily, 0 l 2.5 MG / 19:50: Refill(s) Herm william Hydrochloro 00 thiazide 6.25 MG Oral Tablet escitalopra 2015-03 Yes [place] (LEXAPRO) 0-17 Methodi 10 MG 00:00: st tablet 00 bisoprolol- 0 Yes [place] hydrochloro 8-19 Methodi thiazide 00:00: st (ZIAC) 00 2.5-6.25 mg per tablet Warfarin Yes Notes: Ingrid 8- Nurse to l 22:00: ensure Gaffney 00 documentat ion of patient education per anticoagul ation policy. Avoid large intake of vitamin-K containing foods diet. (Same As: Coumadin) atorvastati Yes 40 mg = 1 M emoria n 40 mg 8 tab, PO, l oral tablet 16:36: Bedtime, # Gaffney 00 30 tab, 0 Refill(s) Acetaminoph Yes 100.4 F, M emoria en 325 MG 10-23 # 30 tab, l Oral Tablet 16:36: 0 Luis n 00 Refill(s) warfarin 1 Yes 1 mg = 1 Mem oria mg oral 807 tab, PO, l tablet 16:36: Every Gucci 00 Other Day, # 30 tab, 0 Refill(s) warfarin 4 Yes 4 mg = 1 Mem oria mg oral 8-07 tab, PO, l tablet 16:36: Daily, # Gaffney 00 30 tab, 0 Refill(s) Docusate Yes 100 mg = 1 Mem oria Sodium 100 8-07 cap, PO, l MG Oral 16:36: Daily, # Luis n Capsule 00 30 cap, 0 [Colace] Refill(s) Warfarin No Notes: Ingrid 8 Nurse to l 22:00: ensure Gucci 00 documentat ion of patient education per anticoagul ation policy. Avoid large intake of vitamin-K containing foods diet. (Same As: Coumadin) Warfarin No Notes: Ingrid 8- Nurse to l 22:00: ensure Gaffney 00 documentat ion of patient education per anticoagul ation policy. Avoid large intake of vitamin-K containing foods diet. (Same As: Coumadin) Warfarin No Notes: Ingrid 8- Nurse to l 22:00: ensure Gucci 00 documentat ion of patient education per anticoagul ation policy. Avoid large intake of vitamin-K containing foods diet. (Same As: Coumadin) Warfarin No Notes: Memjulien 8 Nurse to l 22:00: ensure Gaffney 00 documentat ion of patient education per anticoagul ation policy. Avoid large intake of vitamin-K containing foods diet. (Same As: Coumadin) Miralax No Notes: Ingrid 8- Dissolve l 17:32: in 8 oz of Gucci 00 water or juice. (Same as: Miralax) Warfarin No Notes: Ingrid 8 Nurse to l 22:00: ensure Gaffney 00 documentat ion of patient education per anticoagul ation policy. Avoid large intake of vitamin-K containing foods diet. (Same As: Coumadin) Warfarin No Notes: Ingrid 8 Nurse to l 22:00: ensure Gucci 00 documentat ion of patient education per anticoagul ation policy. Avoid large intake of vitamin-K containing foods diet. (Same As: Coumadin) Potassium No Notes: Memori a Chloride 10-17 (Same as: l 19:06: K-Dur 20) Gaffney "Do Not Crush" With food and full glass of water Warfarin No Notes: Memoria 10-16 Nurse to l 22:00: ensure Gucci 00 documentat ion of patient education per anticoagul ation policy. Avoid large intake of vitamin-K containing foods diet. (Same As: Coumadin) Acetaminoph No Notes: Ozzie mimi en 325 MG / 10-16 (Same as: l Hydrocodone 16:50: [place] Fadia nn Bitartrate 00 325/5) Do 5 MG Oral not exceed Tablet 4gm/day of [[place] acetaminop 5/325] hen. Tylenol No Notes: Do Memor ia 10-16 not exceed l 16:49: 4 gm/day. Gucci 00 (Same as: Tylenol) Docusate No Notes: Memoria Sodium 100 10-16 (Same as: l MG Oral 14:00: Colace) Gucci Capsule (Do Not [Colace] Crush) potassium No Notes: Memori a chloride 10-16 (Same as: l 14:00: Potassium Gucci 00 Chloride) Potassium No Notes: Memori a Chloride 10-16 (Same as: l 11:00: K-Dur 20) Gaffney 00 "Do Not Crush" With food and full glass of water Neutra-Phos No Notes: Ozzie mimi 7-31 (Same as: l 10:02: Neutra-Anitha Gucci 00 s) Each 1.25 gm pkt has 250mg phosphorou s. Mix w/2.5oz water and stir. Lipitor No Notes: Memoria 7-31 (Same as: l 02:00: Lipitor) Gucci 00 Coumadin No 5 mg, Memoria 7-30 Route: PO, l 22:00: Drug form: Gaffney 00 TAB, Q5PM, Dosing Weight 75.17, kg, Start date: 10/15/13 17:00:00, Duration: 1 doses or times, Stop date: 10/15/13 17:00:00 Warfarin No Notes: Memoria 7- Nurse to l 22:00: ensure Gaffney 00 documentat ion of patient education per anticoagul ation policy. Avoid large intake of vitamin-K containing foods diet. (Same As: Coumadin) pantoprazol No Notes: For Memoria e 7-30 IV push l 14:00: reconstitu Gaffney 00 te with 10 ml 0.9% sodium chloride and push over 2 minutes. (Same as: Protonix) Aspirin 325 No Notes: (Do Memoria MG Enteric 7-30 Not Crush) l Coated 14:00: Do not Gaffney Tablet 00 crush or chew. heparin, No Notes: Memoria porcine 7-30 porcine l 05:00: heparin NS 1,000 mL No 1,000 mL, M emoria 730 Rate: 125 l 04:39: ml/hr, Gaffney 00 Infuse over: 8 hr, Route: IV, Total Volume: 1,000, Start date: 10/14/13 23:39:00, Duration: 30 day, Stop date: 11/13/13 23:38:00 Sodium No 250 mL, Memoria Chloride 7-30 250 ml/hr, l 0.154 04:38: Infuse Gucci MEQ/ML 00 Over: 1 Injectable hr, Route: Solution IV, ONCE, Priority: STAT, kg, Start date: 10/14/13 23:38:00, Duration: 1 doses or times, Stop date: 10/14/13 23:38:00 heparin No 500 mL, Memoria additive 7-30 Rate: l 25,000 unit 04:35: 21.05 Fadia nn [14 00 ml/hr, unit/kg/hr] Infuse + Premix over: 23.8 Diluent hr, Route: Dextrose 5% IV, Dosing 500 mL Weight 75.17 kg, Total Volume: 500 mL, Start date: 10/14/13 23:35:00, Duration: 30 day, Stop date: 11/13/13 23:34:00 Saline No Notes: Memoria Flush 0.9% 7-30 (Same as: l 02:00: BD Gaffney 00 Posiflush) Iohexol No Special Memoria 7-30 Instructio l 00:12: ns: Dose = Gaffney 00 2.2ml/kg, Max dose = 100ml -- "To be infused by Radiology Staff ONLY" Saline No Notes: Memoria Flush 0.9% 7-29 (Same as: l 23:54: BD Gucci 00 Posiflush) Sodium No 1,000 mL, Memori a Chloride 7-29 Rate: 75 l 0.154 23:54: ml/hr, Gaffney MEQ/ML 00 Infuse Injectable over: 13.3 Solution hr, Route: IV, Total Volume: 1,000, Start date: 10/14/13 18:54:00, Duration: 30 day, Stop date: 11/13/13 18:53:00 Saline No Notes: Memoria Flush 0.9% 7-29 (Same as: l 21:47: BD Gucci 00 Posiflush) Vital Signs Vital Name Observation Time Observation Value Comments Source BMI Calculated 2017-12-19 19:49:00 Tila al Gucci Weight 2017-12-19 19:49:00 [facility] Height 2017-12-19 19:49:00 167.64 cm [facility] Systolic (mm Hg) 2017-12-19 19:49:00 Ozzie Duckworth Diastolic (mm Hg) 2017-12-19 19:49:00 [facility] eder Duckworth Heart Rate 2017-12-19 19:49:00 [facility] Respitory Rate 2013-10-23 16:57:00 Memori al Gucci Temperature Oral (F) 2013-10-23 16:57:00 98.3 F [facility] Gaffney Heart Rate 2013-10-23 16:57:00 [facility] [place] Systolic (mm Hg) 2013-10-23 16:57:00 Ozzie rial Gaffney Diastolic (mm Hg) 2013-10-23 16:57:00 Mem orial Gaffney Temperature Oral (F) 2013-10-23 13:35:00 98.2 F [facility] Gaff[place] Respitory Rate 2013-10-23 13:35:00 Memori al Gucci Heart Rate 2013-10-23 13:35:00 [facility] Gucci Systolic (mm Hg) 2013-10-23 13:35:00 Ozzie rial Gaffney Diastolic (mm Hg) 2013-10-23 13:35:00 Mem orial Gucci Diastolic (mm Hg) 2013-10-23 09:23:00 Mem orial Gucci Systolic (mm Hg) 2013-10-23 09:23:00 Ozzie rial Gaffney Temperature Oral (F) 2013-10-23 09:23:00 98.7 F [facility] Gaff[place] Heart Rate 2013-10-23 09:23:00 [facility] Gucci Respitory Rate 2013-10-23 09:23:00 Memori al Gucci Weight 2013-10-15 04:50:00 [facility] G[place] BMI Calculated 2013-10-15 04:50:00 Memori al Gaffney Height 2013-10-15 04:50:00 172.72 cm [facility] Gaffney Procedures Procedure Date / Time Performed Performing Clinician [facility] Excision of bunion [facility] william Plan of Care Planned Activity Planned Date Details Comments Source Future Scheduled 2019-11-18 INFLUENZA VACCINE [place] [facility] 00:00:00 [code = INFLUENZA VACCINE] Future Scheduled 2014-02-23 BREAST CANCER [place] [facility]odist Test 00:00:00 SCREENING [code = BREAST CANCER SCREENING] Future Scheduled 2014-02-23 COLONOSCOPY SCREENING [facility] Test 00:00:00 [code = COLONOSCOPY SCREENING] Future Scheduled 2014-02-23 SHINGLES VACCINES [place] [facility] 00:00:00 (#1) [code = SHINGLES VACCINES (#1)] Future Scheduled 1985-02-23 Screening for [facility] thodist Test 00:00:00 malignant neoplasm of cervix (procedure) [code = 825373901] Encounters Start End Encounter Admission Attending Care Care Encounter Source Date/Time Date/Time Type Type Clinicians Facility Department ID 2019-09-26 2019-09-26 Laboratory Lab, [facility] [id number] 14:43:52 15:03:52 Only Fam Pob I [facility] [id number] [place] [id number] Professio [id number] nal [address] 2018-03-14 2018-03-15 Outpatient MHMISCHER MHMISCHER [id number] 13:58:00 23:59:59 00 2018-01-30 2018-01-30 Outpatient Katerine MHMISCHER MHMISCHER [id number] 14:45:00 14:45:00 [place] 01 Thuan 2017-12-19 2017-12-19 Outpatient Katerine MHMISCHER MHMISCHER [id number] 14:45:00 23:59:59 [place] 00 Thuan 2013-10-14 2013-10-23 Outpatient SHANDRA Cooper IE [id number] 16:11:00 16:33:00 Clare Storm Results Test Description Test Time Test Comments Results Result Comments Source HEMATOLOGY 2013-10-23 2.45 [facility] 07:23:06 HEMATOLOGY 2013-10-23 07:23:06 Test Item Value Reference Range Interpretation Comme nts PT (test code = PT) 26.1 s 12.0-14.7 [facility]pejjZRLHNRVCHC5581-73-96 10:15:552.66[facility] 2013-10-22 10:15:55 Test Item Value Reference Range Interpretation Comments PT (test code = PT) 27.8 s 12.0-14.7 [facility]woodOxibrbtBGCSNCRAWU6184-37-50 09:24:46 Test Item Value Reference Range Interpretation Comments PT (test code = PT) 24.0 s 12.0-14.7 [facility]woodKeitrddCODVEZBEQU7586-33-95 09:24:462.20[facility] 2013-10-20 11:11:00 Test Item Value Reference Range Interpretation Comments PTT (test code = PTT) 77.0 s 22.9-35.8 [facility]woodLjeycvjEQOXJCGOCC3878-73-60 04:00:55 Test Item Value Reference Range Interpretation Comments PTT (test code = PTT) 70.0 s 22.9-35.8 Memorial PzjgauyEMXWKACUFH9193-07-82 19:02:27 Test Item Value Reference Range Interpretation Comments PTT (test code = PTT) 108.1 s 22.9-35.8 [facility] HermannCHEM TTLZA9675-86-26 07:00:001.7[facility] HermannCHEM PANEL 2013-10-17 07:00:002.8[facility] LxcupvlFECRCRLHSGYW3630-87-13 07:00:0012.3 Memorial NrqpmbaXURVGSIGIHCQ3784-72-41 07:00:72782Ybfotqed HermannELECTROLYTES 2013-10-17 07:00:008.2[facility] DcxpxboSFBKSKNXVYAH6076-41-60 07:00:33014Aqltupuq WnqlqbrHFHKILFFZPGA1054-94-41 07:00:0026[facility] ZlulbioZJUCWPBMMXID0608-18-58 07:00:0094[facility] OzpceuvQIXWKBOPNSGO1400-66-94 07:00:67995Ixdpwdts Gucci BMHVEVTIKNDF9986-04-79 07:00:003.3[facility] GqewqyhWFZEFDIBGZIJ8195-51-08 07:00:007[facility] SqehcxzTQFLHNXJGGIF1974-97-86 07:00:000.5[facility] Gu[facility] ZYZMIJUJZJ7652-23-96 07:00:0013.5[facility] KmierrfRTYHTAHXXR3206-37-42 07:00:00 41.1[facility] FhvscghXGGZUBQYWE0736-89-71 07:00:0082.3[facility] HermannHEMATOLOGY 2013-10-17 07:00:007.6[facility] ZckxtbvRRPVVFCLII7034-73-15 07:00:005.00[facility] NzjwyqcHWIKZOAQPO0451-14-06 07:00:009.0[facility] WkrqckhEXXVQMNOOC9931-56-33 07:00:12042Ihtpvmgc FqlpzifCICXUYGSNI2845-97-02 07:00:0032.9[facility] XPKFFJRRHY5868-52-88 07:00:00 Test Item Value Reference Range Interpretation Comments MCH (test code = MCH) 27.0 pg 27.0-31.0 Memorial IkbbavqFYPJZAEFAM8840-67-67 07:00:0018.1[facility] HermannHEMATOLOGY 2013-10-17 07:00:001.5[facility] WrvcuhpZPDDDIKXWN0523-78-29 07:00:000.1[facility] KxbwhgcKIXDLMCMFX0932-28-11 07:00:000.1[facility] ZgenphtQDHADONQJI2355-30-03 07:00:004.3[facility] IsprzeuSNAXQOOPOA4889-52-12 07:00:000.8[facility] Gucci INGUFXHWWG9496-66-47 07:00:002.4[facility] KvlnitpMEHXIZHOHA3360-55-36 07:00:000.7 Memorial YvmlhloQQIMYBFWWC3278-19-17 07:00:0031.1[facility] HermannHEMATOLOGY 2013-10-17 07:00:009.7[facility] UuiqzujDAJZBWKIPW4035-85-51 07:00:0056.9[facility] HermannCHEM RTYXM3673-18-85 08:23:072.2[facility] HermannCHEM ZNPUI2699-59-14 08:23:071.8[facility] LkkuwznVTSZYAWATTKV5867-11-56 08:23:0714.3[facility] DSSWOKVFFSFK6938-07-09 08:23:31056Kzcjfzwf CnljrkoIYLWVGJOSJXA9351-16-99 08:23:0797[facility] McnytbmCAXHGQBPIMNE8334-61-21 08:23:0711[facility] IJGIPCEZFTBB3393-11-16 08:23:55165Owmmnvrh QzalpxtTRIMDVTDRRIP6805-62-00 08:23:073.3[facility] MglverrNWYBLJLWDBEJ2558-78-37 08:23:34025Vfetfpms Gucci SGERYAQWIVHV8099-62-05 08:23:070.4[facility] MpcktvfYTLYNJYYLPSM1849-24-02 08:23:078.6[facility] QbrmazuHODSZDCTUXLM4873-87-13 08:23:0723[facility] XAOGCUBOTQ0367-32-33 08:23:000.9[facility] VryfjpcTZSVIVPZZD9500-99-65 08:23:000.1 Memorial FjbrfbeBVZJPRFXTS1883-57-31 08:23:000.5[facility] HermannHEMATOLOGY 2013-10-16 08:23:002.3[facility] StayllnVLBEAURZNP6516-40-03 08:23:000.4[facility] FpjqhfiVMAUEBDGAT2186-75-83 08:23:006.6[facility] XwqzzlmWBKZWIEICJ9263-67-20 08:23:009.2[facility] CejfdpvIEUEAKQOWJ9478-98-45 08:23:0023.4[facility] QZMKZOCUEK4488-81-34 08:23:0066.5[facility] MpzuwruDCREHMWDUR3778-39-57 08:23:00 185[facility] IositfaMMWQHBTKGP0025-55-42 08:23:008.8[facility] HermannHEMATOLOGY 2013-10-16 08:23:00 Test Item Value Reference Range Interpretation Comments MCH (test code = MCH) 26.6 pg 27.0-31.0 [facility] BhtoonnSKVEULOSMX1117-29-51 08:23:0040.8[facility] HermannHEMATOLOGY 2013-10-16 08:23:0032.5[facility] ElxtayvSDXPEGHYSY3987-41-47 08:23:0017.6[facility] XbrefdiOCMATHJMUJ5638-30-10 08:23:0081.7[facility] MvapgyyCEBLVZJVXR7731-89-85 08:23:004.99[facility] EkaqumvFXINHLLVWF8239-47-50 08:23:0013.3[facility] ICOBJQNRIJ7863-57-09 08:23:0010.0[facility] HermannCHEM WBCTH1083-10-31 05:03:28 3.1[facility] HermannCHEM VEQIX9767-99-50 05:03:281.8[facility] HermannELECTROLYTES 2013-10-15 05:03:2816.4[facility] GwanogyIUZFFXRQDXVP9594-77-22 05:03:76016 Memorial GpewxcyABZCFLLDMQBT6008-00-15 05:03:288.9[facility] HermannELECTROLYTES 2013-10-15 05:03:97995Ezlnaowx OokttpcQNXVIBKZQVKI1243-67-62 05:03:2822[facility] RelaieaZJRKCMWQOLPC1620-30-82 05:03:27088Tjcglmfb UvidushMFFRQILBDYVT8958-44-98 05:03:280.6[facility] NkkwmcqREVAFHVWXVRL3054-11-48 05:03:2812[facility] SVFFNFJZUNVP0510-58-53 05:03:24966Vldtanii UxwbmukWSSPGRBFCZEZ7506-69-64 05:03:283.4[facility] KcrowmuSQYUBLTYEN9353-37-27 05:03:280.9[facility] DTOBZDLWCQ9879-58-68 05:03:280.1[facility] YleedsiVDRVLSVHIX3604-62-08 05:03:28 10.0[facility] MjdxuxuUWVNTLJVNO9903-04-81 05:03:2888.7[facility] HermannHEMATOLOGY 2013-10-15 05:03:281.2[facility] FexzvnvBGQMMUZDRS1011-18-14 05:03:280.1[facility] FmxtexsYDLWUIMCQW1017-08-59 05:03:287.6[facility] PjqedqaLTAKLIZLEL8650-06-46 05:03:81978Humcddbc ConnjrtHWOKLYGFGU1244-12-21 05:03:288.7[facility]cci UUODCZYMYJ9189-76-17 05:03:2813.4[facility] IzxfnqkMGBVLYBYOA2778-30-35 05:03:28 41.4[facility] ZxkcasnZAJDJGFZNV8485-53-33 05:03:2818.0[facility] HermannHEMATOLOGY 2013-10-15 05:03:2881.7[facility] NcizgrqPRDMOOPNIU6733-53-26 05:03:28 Test Item Value Reference Range Interpretation Comments MCH (test code = MCH) 26.5 pg 27.0-31.0 [facility] IfaymweMWFIEMQUFX4152-46-21 05:03:288.6[facility] HermannHEMATOLOGY 2013-10-15 05:03:285.06[facility] CnrvmsqKJQVNYXCFC1482-16-19 05:03:2832.4[facility] QyzgytoHXHDSZ3469-49-01 05:03:288[facility] BlwijvtMZFPQZ6496-71-92 05:03:32651 Memorial IioznmdBMPJUD5384-33-21 05:03:2841[facility] KutotyqCSHFXM5843-55-91 05:03:49450Kthtuvol ThfxdfpLAZHWI4304-02-99 05:03:2871[facility] HermannLIPIDS 2013-10-15 05:03:282.66[facility] HermannSPECIAL NHNFDTXNA8562-85-91 05:03:285.1 [facility] HermannPARATHYROID ARHAZTW6375-79-01 05:03:001.14[facility] PARATHYROID YQRTVTY4589-47-99 05:03:001.11[facility] HermannURINE AND STOOL 2013-10-14 22:00:53Moderate *ABN*(10/14/13 5:00 PM)[facility]ann[facility] AND FFYAL0586-42-29 22:00:53Negative *NA*(10/14/13 5:00 PM)[facility] AND CABHP9562-26-11 22:00:53Negative (10/14/13 5:00 PM)[facility] AND CUQBT3551-21-74 22:00:530.2[facility]annUR[facility] AND THLYF3220-91-54 22:00:53 Negative (10/14/13 5:00 PM)[facility] AND ITHLM8991-59-23 22:00:53 Negative (10/14/13 5:00 PM)[facility] AND YPQTE8740-24-10 22:00:53 Negative (10/14/13 5:00 PM)[facility] AND YEEWI4485-35-67 22:00:53 Test Item Value Reference Range Interpretation Comments UA pH (test code = UA pH) 6.5 1 5.0-8.0 [facility] AND FBBCK9796-07-41 22:00:53 Test Item Value Reference Range Interpretation Comments UA Spec Grav (test code = UA Spec 1.020 1 Grav) [facility] TIRTM1809-94-42 22:00:53Yellow *NA*(10/14/13 5:00 PM) [facility] LTEKW1744-02-97 22:00:53Slight Cloudy (10/14/13 5:00 PM)[facility] AND VWQKH6882-89-26 22:00:53Performed (10/14/13 5:00 PM) [facility] HermannCARDIAC XLJULHW9771-43-03 21:47:001.4[facility] HermannCARDIAC DQHIHTH7517-63-16 21:47:000.7[facility] HermannCARDIAC JPSEPCL0191-32-90 21:47:00 <0.02[facility] HermannCARDIAC EYBOYUM5882-35-02 21:47:0049[facility] AICIUJASDC7493-18-58 21:38:000.0[facility] XladkyoNDSDIGWSAW3192-86-13 21:38:000.0 [facility] JeiyhgxSPYHJHOWZF7324-86-40 21:38:00Normal (10/14/13 4:38 PM)[facility] UfgwuanQXUEEFNQXU3526-22-39 21:38:00Normal (10/14/13 4:38 PM)[facility] QURJZWGYJB2767-77-23 21:38:000.3[facility]
--- NOTE | 2019-11-03 21:58 | ER ---
Nurse's Notes [facility] Name: Rosalina Dooley Age: 54 yrs Sex: Female : 1965 Arrival Date: 11/03/2019 Time: 19:27 Bed 26 Private MD: Diagnosis: Contusion of right hand;Abrasion of right hand Presentation: 11/02 19:27 Chief complaint: Patient states: Swelling on dorsum of R hand. Denies injury to the ca1 hand. Coronavirus screen: Client denies travel out of the [place] in the last 14 days. At this time, the client does not indicate any symptoms associated with coronavirus-19. Ebola Screen: Patient negative for fever greater than or equal to 101.5 degrees Fahrenheit, and additional compatible Ebola Virus Disease symptoms Patient denies exposure to infectious person. Patient denies travel to an Ebola-affected area in the 21 days before illness onset. No symptoms or risks identified at this time. Initial Sepsis Screen: Does the patient meet any 2 criteria? No. Patient's initial sepsis screen is negative. Does the patient have a suspected source of infection? No. Patient's initial sepsis screen is negative. Risk Assessment: Do you want to hurt yourself or someone else? Patient reports no desire to harm self or others. Onset of symptoms was November 03, 2019. 19:27 Method Of Arrival: Ambulatory ca1 19:27 Acuity: MEKA 4 ca1 Triage Assessment: 19:30 General: Appears in no apparent distress. comfortable, Behavior is calm, cooperative, ca1 appropriate for age. RN NEONATAL ICU: 19:30 LMP N/A - Post-menopause ca1 Historical: - Allergies: 19:30 NKDA; ca1 - PMHx: 19:30 CVA; Hypertension; ca1 - PSHx: 19:30 None; ca1 - Immunization history:: Adult Immunizations up to date. - Social history:: Smoking status: Patient denies any tobacco usage or history of. - Family history:: not pertinent. Screenin:24 Abuse screen: Denies threats or abuse. Denies injuries from another. Nutritional lp1 screening: No deficits noted. Tuberculosis screening: No symptoms or risk factors identified. Fall Risk None identified. Assessment: 21:00 General: Appears in no apparent distress. Behavior is appropriate for age. Pain: lp1 Complains of pain in dorsum of right hand. Neuro: No deficits noted. Cardiovascular: Patient's skin is warm and dry. Respiratory: No deficits noted. GI: No signs and/or symptoms were reported involving the gastrointestinal system. : No signs and/or symptoms were reported regarding the genitourinary system. EENT: No signs and/or symptoms were reported regarding the EENT system. Derm: Bruising that is dark purple, on dorsum of right hand. Musculoskeletal: Swelling present in dorsum of right hand. Vital Signs: 19:27 BP 139 / 89; Pulse 72; Resp 16 S; Temp 98.9(O); Pulse Ox 100% on R/A; Weight 72.57 kg ca1 (R); Height 5 ft. 7 in. (170.18 cm) (R); 19:27 Body Mass Index 25.06 (72.57 kg, 170.18 cm) ca1 ED Course: 19:27 Patient arrived in ED. ca1 19:30 Triage completed. ca1 19:30 Arm band placed on right wrist. ca1 20:28 Natalie Fried RN is Primary Nurse. lp1 20:45 Duncan Anne MD is Attending Physician. oz 21:24 Patient has correct armband on for positive identification. lp1 21:24 No provider procedures requiring assistance completed. Patient did not have IV access lp1 during this emergency room visit. 22:06 Hand Right 2 View XRAY In Process Unspecified. 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 Exp: lp1 05/08/2022. Lot #: [id number]. } Route: IM; Site: left deltoid; 22:22 Follow up: Response: Medication administered at discharge. lp1 Outcome: 21:57 Discharge ordered by . [facility] 22:22 Discharged to home ambulatory. lp1 22:22 Condition: good 22:22 Discharge instructions given to patient, Instructed on discharge instructions, follow up and referral plans. medication usage, wound care, Demonstrated understanding of instructions, follow-up care, medications, Prescriptions given X 2. 22:22 Patient left the ED. lp1 Signatures: Dispatcher [employer] EDMS Duncan Anne MD MD cha Pena, Laura, RN RN lp1 Acob, Melida, RN RN ca1
--- NOTE | 2019-11-03 21:58 | EDPHYS ---
Physician Documentation [facility] Name: Rosalina Dooley Age: 54 yrs Sex: Female : 1965 Arrival Date: 11/03/2019 Time: 19:27 Bed 26 Private MD: DERRICK Physician Duncan Anne HPI: 11/02 21:48 This 54 yrs old Female presents to ER via Ambulatory with complaints of Hand oz Swelling. 21:48 The patient or guardian reports decreased range of motion, pain, swelling, tenderness. oz The complaints affect the MCP of left middle finger and MCP of left index finger. Context: The problem was sustained. Onset: The symptoms/episode began/occurred 1 day(s) ago. Modifying factors: The symptoms are alleviated by holding still. Associated signs and symptoms: The patient has no apparent associated signs or symptoms. Severity of symptoms: At their worst the symptoms were mild, in the emergency department the symptoms are unchanged. The patient has experienced similar episodes in the past, a few times. 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 - Social history:: Smoking status: Patient denies any tobacco usage or history of. - Family history:: not pertinent. ROS: 21:48 Constitutional: Negative for fever, chills, and weight loss, Eyes: Negative for injury, oz pain, redness, and discharge, ENT: Negative for injury, pain, and discharge, Neck: Negative for injury, pain, and swelling, Cardiovascular: Negative for chest pain, palpitations, and edema, Respiratory: Negative for shortness of breath, cough, wheezing, and pleuritic chest pain, Abdomen/GI: Negative for abdominal pain, nausea, vomiting, diarrhea, and constipation, Back: Negative for injury and pain, : Negative for injury, bleeding, discharge, and swelling, Skin: Negative for injury, rash, and discoloration, Neuro: Negative for headache, weakness, numbness, tingling, and seizure, Psych: Negative for depression, anxiety, suicide ideation, homicidal ideation, and hallucinations, Allergy/Immunology: Negative for hives, rash, and allergies, Endocrine: Negative for neck swelling, polydipsia, polyuria, polyphagia, and marked weight changes, Hematologic/Lymphatic: Negative for swollen nodes, abnormal bleeding, and unusual bruising. 21:48 MS/extremity: Positive for decreased range of motion, pain, swelling, tenderness, of the right hand. Exam: 21:48 Constitutional: This is a well developed, well nourished patient who is awake, alert, oz and in no acute distress. Head/Face: Normocephalic, atraumatic. Eyes: Pupils equal round and reactive to light, extra-ocular motions intact. Lids and lashes normal. Conjunctiva and sclera are non-icteric and not injected. Cornea within normal limits. Periorbital areas with no swelling, redness, or edema. ENT: Nares patent. No nasal discharge, no septal abnormalities noted. Tympanic membranes are normal and external auditory canals are clear. Oropharynx with no redness, swelling, or masses, exudates, or evidence of obstruction, uvula midline. Mucous membranes moist. Neck: Trachea midline, no thyromegaly or masses palpated, and no cervical lymphadenopathy. Supple, full range of motion without nuchal rigidity, or vertebral point tenderness. No Meningismus. Chest/axilla: Normal chest wall appearance and motion. Nontender with no deformity. No lesions are appreciated. Cardiovascular: Regular rate and rhythm with a normal S1 and S2. No gallops, murmurs, or rubs. Normal PMI, no JVD. No pulse deficits. Respiratory: Lungs have equal breath sounds bilaterally, clear to auscultation and percussion. No rales, rhonchi or wheezes noted. No increased work of breathing, no retractions or nasal flaring. Abdomen/GI: Soft, non-tender, with normal bowel sounds. No distension or tympany. No guarding or rebound. No evidence of tenderness throughout. Back: No spinal tenderness. No costovertebral tenderness. Full range of motion. Female : Normal external genitalia. Skin: Warm, dry with normal turgor. Normal color with no rashes, no lesions, and no evidence of cellulitis. Neuro: Awake and alert, GCS 15, oriented to person, place, time, and situation. Cranial nerves II-XII grossly intact. Motor strength 5/5 in all extremities. Sensory grossly intact. Cerebellar exam normal. Normal gait. Psych: Awake, alert, with orientation to person, place and time. Behavior, mood, and affect are within normal limits. 21:48 Musculoskeletal/extremity: ROM: intact in all extremities, full active range of motion, full passive range of motion, Circulation is intact in all extremities. Sensation intact. Compartment Syndrome exam of affected extremity: is normal. DVT Exam: negative Homans' sign noted on exam, no appreciated bluish discoloration, no erythema, no increased warmth, pain, swelling, tenderness, that is mild. 21:48 Skin: Appearance: normal except for affected area, Color: normal in color, Temperature: normal temperature, Moisture: normal moisture, petechiae, not noted, abscess, not appreciated, cellulitis, is not appreciated, induration, is not appreciated, injury, abrasion(s), very small abrasion noted, of the dorsal aspect of proximal phalanx of right index finger and dorsal aspect of proximal phalanx of right middle finger, contusion(s), that are superficial. Vital Signs: 19:27 BP 139 / 89; Pulse 72; Resp 16 S; Temp 98.9(O); Pulse Ox 100% on R/A; Weight 72.57 kg ca1 (R); Height 5 ft. 7 in. (170.18 cm) (R); 19:27 Body Mass Index 25.06 (72.57 kg, 170.18 cm) ca1 MDM: 20:45 Patient medically screened. oz 21:53 Data reviewed: vital signs, nurses notes, radiologic studies, plain films. oz 21:55 Differential diagnosis: closed fracture, contusion, abrasion. Data interpreted: Cardiac oz monitor: rate is 72 beats/min, rhythm is regular, Pulse oximetry: on room air is 100 %. Test interpretation: by ED physician or midlevel provider: plain radiologic studies. Counseling: I had a detailed discussion with the patient and/or guardian regarding: the historical points, exam findings, and any diagnostic results supporting the discharge/admit diagnosis, radiology results, the need for outpatient follow up, for definitive care, a family practitioner. ED course: xrays neg, explained to the patient. 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 Exp: lp1 05/08/2022. Lot #: [id number]. } Route: IM; Site: left deltoid; 22:22 Follow up: Response: Medication administered at discharge. lp1 Disposition: 11/03/19 21:57 Discharged to Home. Impression: Contusion of right hand, Abrasion of right hand. - Condition is Stable. - Discharge Instructions: Abrasion, Hand Contusion, [id number], Abrasion, [id number]. - Prescriptions for Bactroban 2 % Topical Ointment - Apply to affected area 1 application by TOPICAL route every 12 hours; 15 gram. Motrin IB 200 mg Oral Tablet - take 2 tablet by ORAL route every 6 hours As needed as needed with food; 30 tablet. - Medication Reconciliation Form, Thank You Letter, Antibiotic Education, Prescription Opioid Use form. - Follow up: Private Physician; When: 2 - 3 days; Reason: Recheck today's complaints, Continuance of care, Re-evaluation by your physician. - Problem is new. - Symptoms have improved. Signatures: Dispatcher [employer] EDMS Duncan Anne MD MD cha Pena, Laura, RN RN lp1 Melida Davis RN RN ca1 Corrections: (The following items were deleted from the chart) 22:22 21:57 11/03/2019 21:57 Discharged to Home. Impression: Contusion of right hand; lp1 Abrasion of right hand. Condition is Stable. Forms are Medication Reconciliation Form, Thank You Letter, Antibiotic Education, Prescription Opioid Use. Follow up: Private Physician; When: 2 - 3 days; Reason: Recheck today's complaints, Continuance of care, Re-evaluation by your physician. Problem is new. Symptoms have improved. oz
[2019-11-03] MEDS ORDERED: MUPIROCIN 2% OINT 22GM TUBE TOP ONE (22:13)
[2019-11-03] MEDS ORDERED: TETANUS & DIPHTHERIA TOX,ADULT 0.5 ML VIAL ONE (22:13)
--- NOTE | 2019-11-03 22:34 | RAD REPORT ---
EXAM DESCRIPTION: RAD - Hand Right 2 View - 11/03/2019 10:05 pm CLINICAL HISTORY: PAIN COMPARISON: No comparisons FINDINGS: Soft tissue swelling is seen along the dorsum of the hand. The bones are mildly osteopenic . No acute fracture or dislocation. No aggressive marrow lesion.
[2019-11-03 23:49] VITALS: BP 139/89; TEMP 98.9; O2SAT 100
== END 2019-11-03 22:22 | disposition home or self-care (01) ==
LOC: ER 19:06
DX: S60.511A Abrasion of right hand, initial encounter (principal); I10 Essential (primary) hypertension; Z86.73 Personal history of transient ischemic attack (TIA), and cerebral infarction without residual deficits; Z23 Encounter for immunization
CPT/HCPCS: 90714

== ENCOUNTER 2020-06-12 12:51 | Emergency (ER) | payer OTHER ==
--- OUTSIDE RECORDS SUMMARY | 2020-06-12 12:56 | XMS REPORT | Continuity of Care Document ---
:1965 Author Organization [facility] t Address [address] [place] [address] Care Team Providers Name Role Phone Doctor Unassigned, Name Attending Clinician Unavailable TRESSA Attending Clinician Unavailable Lab, Fam Pob I Attending Clinician Unavailable Thuan Garcias Attending Clinician Dotty Cooper Attending Clinician Chata Roberson Admitting Clinician Problems Condition Condition Condition Status Onset Resolution Last Treating Co mments Source Name Details Category Date Date Treatment Clinician Date CVA Diagnosis Active 2013-12-17 Mem oria 10-14 15:36:00 l CVA 18:58: [place] 00 Active 10/14/2013 [facility] Cerebrovas Problem Resolve 2018-10-03 Memoria cular d 13:06:43 l accident [place] (disorder) Cerebrovas cular accident (disorder) Resolved Problem 10/03/2018 [facility] Neuro Hypertensi Problem Resolve 2018-10-03 Memoria ve d 13:06:43 l disorder, [place] systemic Hypertensi arterial ve (disorder) disorder, systemic arterial (disorder) Resolved Problem 10/03/2018 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 13:06:43 l (disorder) Focal Fadia nn dystonia (disorder) Active Problem 10/03/2018 [facility] CVA Diagnosis Active 2013-12-17 Mem oria 15:36:00 l CVA [place] Active [facility] Allergies, Adverse Reactions, Alerts Allergy Allergy Status Severity Reaction(s) Onset Inactive Treating Comm ents Source Name Type Date Date Clinician No Known No Known Active Memori a Medicati Medicati l on on [place] Allergie Allergrenu s s Social History Social Habit Start Date Stop Date Quantity Comments Source Social History 2013-10-15 2013-10-15 [facility] 03:16:14 03:16:14 Medications Ordered Filled Start Stop Current Ordering Indication Dosage Frequency Signature Comments Components Source Medication Medication Date Date Medication? Clinician (SIG) Name Name baclofen 2017-03 Yes 10 mg = 1 M emoria mg oral 0-03 tab, PO, l tablet 20:30: Bedtime, # Fadia nn 00 30 tab, 3 Refill(s), Pharmacy: [place] [id number] Aspirin 81 2017-03 Yes 81 mg = 1 Me moria MG Enteric 0-03 tab, PO, l Coated 20:22: Daily, # [place]cci Tablet 00 90 tab, 3 Refill(s) Escitalopra 2017-03 Yes 10 mg, PO, Memoria m 0-03 Daily, 0 l 19:50: Refill(s) [place] 00 Bisoprolol 2017-03 Yes 1 tab, PO, M emoria Fumarate 0-03 Daily, 0 l 2.5 MG / 19:50: Refill(s) Herm william Hydrochloro 00 thiazide 6.25 MG Oral Tablet Warfarin Yes Notes: Memoria 10-23 Nurse to l 22:00: ensure [place] 00 documentat ion of patient education per anticoagul ation policy. Avoid large intake of vitamin-K containing foods diet. (Same As: Coumadin) atorvastati Yes 40 mg = 1 M emoria n 40 mg 07 tab, PO, l oral tablet 16:36: Bedtime, # [place] 00 30 tab, 0 Refill(s) Acetaminoph Yes 100.4 F, M emoria en 325 MG 10-23 # 30 tab, l Oral Tablet 16:36: 0 Luis n 00 Refill(s) warfarin 1 Yes 1 mg = 1 Mem oria mg oral 8-07 tab, PO, l tablet 16:36: Every Gucci 00 Other Day, # 30 tab, 0 Refill(s) warfarin 4 Yes 4 mg = 1 Mem oria mg oral 8-07 tab, PO, l tablet 16:36: Daily, # [place] 00 30 tab, 0 Refill(s) Docusate Yes 100 mg = 1 Mem oria Sodium 100 8-07 cap, PO, l MG Oral 16:36: Daily, # Luis n Capsule 00 30 cap, 0 [Colace] Refill(s) Warfarin No Notes: Ingrid 8 Nurse to l 22:00: ensure [place] 00 documentat ion of patient education per anticoagul ation policy. Avoid large intake of vitamin-K containing foods diet. (Same As: Coumadin) Warfarin No Notes: Ingrid 8 Nurse to l 22:00: ensure [place] 00 documentat ion of patient education per anticoagul ation policy. Avoid large intake of vitamin-K containing foods diet. (Same As: Coumadin) Warfarin No Notes: Ingrid 8 Nurse to l 22:00: ensure [place] 00 documentat ion of patient education per anticoagul ation policy. Avoid large intake of vitamin-K containing foods diet. (Same As: Coumadin) Warfarin No Notes: Ingrid 8 Nurse to l 22:00: ensure [place] 00 documentat ion of patient education per anticoagul ation policy. Avoid large intake of vitamin-K containing foods diet. (Same As: Coumadin) Miralax No Notes: Ingrid 8 Dissolve l 17:32: in 8 oz of [place] 00 water or juice. (Same as: Miralax) Warfarin No Notes: Ingrid 8 Nurse to l 22:00: ensure [place] 00 documentat ion of patient education per anticoagul ation policy. Avoid large intake of vitamin-K containing foods diet. (Same As: Coumadin) Warfarin No Notes: Ingrid 8 Nurse to l 22:00: ensure [place] 00 documentat ion of patient education per anticoagul ation policy. Avoid large intake of vitamin-K containing foods diet. (Same As: Coumadin) Potassium No Notes: Memori a Chloride 8- (Same as: l 19:06: K-Dur 20) [place] "Do Not Crush" With food and full glass of water Warfarin No Notes: Memoria 7 Nurse to l 22:00: ensure [place] 00 documentat ion of patient education per anticoagul ation policy. Avoid large intake of vitamin-K containing foods diet. (Same As: Coumadin) Acetaminoph No Notes: Ozzie mimi en 325 MG / 10-16 (Same as: l Hydrocodone 16:50: [place] Fadia nn Bitartrate 00 325/5) Do 5 MG Oral not exceed Tablet 4gm/day of [[place] acetaminop 5/325] hen. Tylenol No Notes: Do Memor ia 10-16 not exceed l 16:49: 4 gm/day. [place] 00 (Same as: Tylenol) Docusate No Notes: Memoria Sodium 100 10-16 (Same as: l MG Oral 14:00: Colace) [place] Capsule (Do Not [Colace] Crush) potassium No Notes: Memori a chloride 10-16 (Same as: l 14:00: Potassium [place] 00 Chloride) Potassium No Notes: Memori a Chloride - (Same as: l 11:00: K-Dur 20) [place] "Do Not Crush" With food and full glass of water Neutra-Phos No Notes: Ozzie mimi - (Same as: l 10:02: Neutra-Anitha Gu[place] 00 s) Each 1.25 gm pkt has 250mg phosphorou s. Mix w/2.5oz water and stir. Lipitor No Notes: Memoria 7- (Same as: l 02:00: Lipitor) [place] 00 Coumadin No 5 mg, Memoria 10-15 Route: PO, l 22:00: Drug form: [place] TAB, Q5PM, Dosing Weight 75.17, kg, Start date: 10/15/13 17:00:00, Duration: 1 doses or times, Stop date: 10/15/13 17:00:00 Warfarin No Notes: Memoria 7 Nurse to l 22:00: ensure [place] 00 documentat ion of patient education per anticoagul ation policy. Avoid large intake of vitamin-K containing foods diet. (Same As: Coumadin) pantoprazol No Notes: For Memoria e 7-30 IV push l 14:00: reconstitu [place] 00 te with 10 ml 0.9% sodium chloride and push over 2 minutes. (Same as: Protonix) Aspirin 325 No Notes: (Do Memoria MG Enteric 7-30 Not Crush) l Coated 14:00: Do not [place] Tablet 00 crush or chew. heparin, No Notes: Memoria porcine 7-30 porcine l 05:00: heparin [place] 00 NS 1,000 mL No 1,000 mL, M emoria 7-30 Rate: 125 l 04:39: ml/hr, [place] 00 Infuse over: 8 hr, Route: IV, Total Volume: 1,000, Start date: 10/14/13 23:39:00, Duration: 30 day, Stop date: 11/13/13 23:38:00 Sodium No 250 mL, Memoria Chloride 7-30 250 ml/hr, l 0.154 04:38: Infuse [place] MEQ/ML 00 Over: 1 Injectable hr, Route: [...] 0.9% 7-30 (Same as: l 02:00: BD [place] 00 Posiflush) Iohexol No Special Memoria 7-30 Instructio l 00:12: ns: Dose = [place] 00 2.2ml/kg, Max dose = 100ml -- "To be infused by Radiology Staff ONLY" Saline No Notes: Memoria Flush 0.9% 7-29 (Same as: l 23:54: BD [place] 00 Posiflush) Sodium No 1,000 mL, Memori a Chloride - Rate: 75 l 0.154 23:54: ml/hr, [place] MEQ/ML 00 Infuse Injectable over: 13.3 Solution hr, Route: IV, Total Volume: 1,000, Start date: 10/14/13 18:54:00, Duration: 30 day, Stop date: 11/13/13 18:53:00 Saline No Notes: Memoria Flush 0.9% 7-29 (Same as: l 21:47: BD [place] 00 Posiflush) Vital Signs Vital Name Observation Time Observation Value Comments Source BMI Calculated 2017-12-19 19:49:00 Silvinaori al [place] Weight 2017-12-19 19:49:00 [facility] [place] Height 2017-12-19 19:49:00 167.64 cm [facility] Systolic (mm Hg) 2017-12-19 19:49:00 Ozzie rial [place] Diastolic (mm Hg) 2017-12-19 19:49:00 Mem orial [place] Heart Rate 2017-12-19 19:49:00 [facility] [address] Respitory Rate 2013-10-23 16:57:00 Memori al [place] Temperature Oral (F) 2013-10-23 16:57:00 98.3 F [facility] [place] Heart Rate 2013-10-23 16:57:00 [facility] [place] Systolic (mm Hg) 2013-10-23 16:57:00 Ozzie rial [place] Diastolic (mm Hg) 2013-10-23 16:57:00 Mem orial [place] Temperature Oral (F) 2013-10-23 13:35:00 98.2 F [facility] [address] Respitory Rate 2013-10-23 13:35:00 Memori al [address] Heart Rate 2013-10-23 13:35:00 [facility] [place] Systolic (mm Hg) 2013-10-23 13:35:00 Ozzie rial [place] Diastolic (mm Hg) 2013-10-23 13:35:00 Mem orial [place] Diastolic (mm Hg) 2013-10-23 09:23:00 Mem orial [place] Systolic (mm Hg) 2013-10-23 09:23:00 Ozzie Duckworth Temperature Oral (F) 2013-10-23 09:23:00 98.7 F [facility] [place] Heart Rate 2013-10-23 09:23:00 [facility] [place] Respitory Rate 2013-10-23 09:23:00 Silvinakirti Thompson Weight 2013-10-15 04:50:00 [facility] [address] BMI Calculated 2013-10-15 04:50:00 Memori al [address] Height 2013-10-15 04:50:00 172.72 cm [facility] [place] Procedures Procedure Date / Time Performed Performing Clinician Tayla e Excision of bunion [facility] william Encounters Start End Encounter Admission Attending Care Care Encounter Source Date/Time Date/Time Type Type Clinicians Facility Department ID 2020-05-18 2020-05-18 Orders Doctor CRYSTAL [id number] 00:00:00 00:00:00 Only Unassigned, MARIALUISA [id number] [place] [facility] [id number] 2020-01-01 2020-01-01 [facility] [id number] [place] 00:00:00 00:00:00 NIKKI [address] 2020-01-01 2020-01-01 Outpatient TRESSA [facility] [id number] [address] [place] 00:00:00 00:00:00 NIKKI [address] 2019-09-26 2019-09-26 Laboratory Lab, [facility] [id number] 14:43:52 15:03:52 Only Fam P[facility] [id number] [place] [id number] Professio [id number] [address]al [address] 2018-03-14 2018-03-15 Outpatient MHMISCHER MHMISCHER [id number] 13:58:00 23:59:59 00 2018-01-30 2018-01-30 Outpatient JOCE GarciasMISCHER MHMISCHER [id number] 14:45:00 14:45:00 [place] Rachid Larose 2017-12-19 2017-12-19 Outpatient Katerine MHMISCHER MHMISCHER [id number] 14:45:00 23:59:59 [place] 00 Thuan 2013-10-14 2013-10-23 Outpatient Kenneth [facility] [id number] 16:11:00 16:33:00 Clare Storm Results Test Description Test Time Test Comments Results Result Comments Source HEMATOLOGY 2013-10-23 2.45 [facility] Fadia nn 07:23:06 HEMATOLOGY 2013-10-23 07:23:06 Test Item Value Reference Range Interpretation Comme nts PT (test code = PT) 26.1 s 12.0-14.7 [facility] AgmfpirHZSYRPXUSV9990-44-34 10:15:552.66[facility]annHEMATOLOGY 2013-10-22 10:15:55 Test Item Value Reference Range Interpretation Comments PT (test code = PT) 27.8 s 12.0-14.7 [facility] PigwxuqUETDEDXGXJ5320-14-93 09:24:46 Test Item Value Reference Range Interpretation Comments PT (test code = PT) 24.0 s 12.0-14.7 [facility] MjdbjktMYKYDNBRQH2165-29-87 09:24:462.20[facility] HermannHEMATOLOGY 2013-10-20 11:11:00 Test Item Value Reference Range Interpretation Comments PTT (test code = PTT) 77.0 s 22.9-35.8 [facility] WawihjuQFPAQPPKBE5212-30-78 04:00:55 Test Item Value Reference Range Interpretation Comments PTT (test code = PTT) 70.0 s 22.9-35.8 [facility] SvsfepcYHTTYKZCJQ4497-53-25 19:02:27 Test Item Value Reference Range Interpretation Comments PTT (test code = PTT) 108.1 s 22.9-35.8 [facility] HermannCHEM SKXYU1498-83-95 07:00:001.7[facility] HermannCHEM PANEL 2013-10-17 07:00:002.8[facility] TkjwwhkLFXZVJBIOORF5431-31-93 07:00:0012.3 [facility] DtsxpakYQULIAIJYVTI6072-63-90 07:00:69455Pykphfui HermannELECTROLYTES 2013-10-17 07:00:008.2[facility] SuqqowmBYYSUDSBWVEN2382-86-46 07:00:66664Llfipeir MdrcaftSSQJEJXHEXHD3428-40-23 07:00:0026[facility] VbyejdgERSDRFQBESHQ9825-72-34 07:00:0094[facility] YfeokbpMMBJUCRVVWJR7169-74-04 07:00:23703Bnlzvdfs [address] MZNXOLOGJAME6276-29-66 07:00:003.3[facility] QoxcxbwXQLGHMPMKOZE3423-98-40 07:00:007[facility] EgaqcuiAGJOTFEJEMRN6513-53-61 07:00:000.5[facility] [place] DPOXTKZWYD0688-63-46 07:00:0013.5[facility] PyqclhyDMHMTICLRX8236-49-77 07:00:00 41.1[facility] UfrkvjnTGHTOVZUQF3516-44-14 07:00:0082.3[facility] HermannHEMATOLOGY 2013-10-17 07:00:007.6[facility] ItzhastSEMCJNVTSA5199-30-86 07:00:005.00[facility] BgotmhgIDZCQPHXFT3070-40-54 07:00:009.0[facility] BkqteoqTGHCHWFIEM6972-92-85 07:00:29967Nscyrtkf RcyndfaVEIDVQFWHU3963-71-85 07:00:0032.9[facility] [place] DRJSTRHGPJ1058-25-22 07:00:00 Test Item Value Reference Range Interpretation Comments MCH (test code = MCH) 27.0 pg 27.0-31.0 [facility] AonsfljUMMNQTBQFJ6786-27-51 07:00:0018.1[facility] HermannHEMATOLOGY 2013-10-17 07:00:001.5[facility] KkjiwawJUYUMNXPYC7875-61-98 07:00:000.1[facility] BmjxgelUXGQKLVCWK9640-08-60 07:00:000.1[facility] YocuqazWNOVHIQCSA6251-29-68 07:00:004.3[facility] AoxeoqpJICQYFCCVZ2602-52-14 07:00:000.8[facility] AYKQSIPVFZ7899-18-90 07:00:002.4[facility] FjjzwwwCBXYJSIIPC5011-68-04 07:00:000.7 [facility] WbhophmMPDIJSXGWL5843-89-01 07:00:0031.1[facility] HermannHEMATOLOGY 2013-10-17 07:00:009.7[facility] HzeewgtVNZCDWJEHL5532-04-51 07:00:0056.9[facility] HermannCHEM FGYKY0559-77-75 08:23:072.2[facility] HermannCHEM WWKZN1190-91-14 08:23:071.8[facility] ArhhvzcNSXXCODDMILF9450-77-89 08:23:0714.3[facility] [place] FDLXCVYBYVIP2990-23-61 08:23:27947Wpiaymgf EjvvlmpRISLCQWAHIQV6889-62-52 08:23:0797[facility] RigsysvOPSQFHXFKNCL9222-78-00 08:23:0711[facility] [place] FYWHAHGZACLN9707-67-53 08:23:49540Buooxohz AkfvtiyTYFJKJXBNEZY8453-92-36 08:23:073.3[facility] QxlgproQYABGOGEMQRP8162-07-47 08:23:29526Exatuzob [place] TRLGHOFQRPMF5368-28-72 08:23:070.4[facility] KmybbkbDEAEVZZPFVZF5863-52-69 08:23:078.6[facility] GykbvfoIERQHOLRXIBN3883-90-55 08:23:0723[facility] LNDKJZRAOP0785-72-39 08:23:000.9[facility] EpbubrgAFCJWTWFZD6862-88-73 08:23:000.1 [facility] RrgkvpmRFTAGZBFBF3750-50-27 08:23:000.5[facility] HermannHEMATOLOGY 2013-10-16 08:23:002.3[facility] PetcwciYWFDVDBKOF8625-72-97 08:23:000.4[facility] DeqgcvjTRHKOIKKDY3323-63-88 08:23:006.6[facility] UxlichrZMDTQLMJIU4456-48-19 08:23:009.2[facility] ZdyiaiuJCRGQUGRRH6637-03-96 08:23:0023.4[facility] [place] KWGWMTHPFH6195-75-41 08:23:0066.5[facility] EmbdhkwHHDXVXDXFH6118-45-79 08:23:00 185[facility] SkquptsKXSSATIHPG9218-35-33 08:23:008.8[facility] HermannHEMATOLOGY 2013-10-16 08:23:00 Test Item Value Reference Range Interpretation Comments MCH (test code = MCH) 26.6 pg 27.0-31.0 [facility] IrdgumwXKTRWAUWEQ8781-91-45 08:23:0040.8[facility] HermannHEMATOLOGY 2013-10-16 08:23:0032.5[facility] PucuhnkEKYWFGQWCT7560-59-38 08:23:0017.6[facility] RuocrnvBVUNLOFSEA0619-48-23 08:23:0081.7[facility] WhrrpssLPGBWGDVJN3094-63-85 08:23:004.99[facility] CdfqlvfWRVTSYJJDA1253-15-30 08:23:0013.3[facility] [place] LUOONNFJLV7745-11-07 08:23:0010.0[facility] HermannCHEM GBVEL1322-21-30 05:03:28 3.1[facility] HermannCHEM OLGHW3930-38-07 05:03:281.8[facility] HermannELECTROLYTES 2013-10-15 05:03:2816.4[facility] CtgofkhODKINPEVDYHU6180-98-51 05:03:69726 [facility] AmnrnimGPYUIVATYKDC5730-21-70 05:03:288.9[facility] HermannELECTROLYTES 2013-10-15 05:03:88411Esnsndce WcfpieqEWRICLWLUDHM4907-70-43 05:03:2822[facility] IynaamtUKFYMCWCCMEV0810-04-12 05:03:55797Njxbjhpm KwtuzmcCSFVHBBFUWYA2176-34-19 05:03:280.6[facility] VaaiqxkJXBBOSTTAUAR2408-39-18 05:03:2812[facility] IYDYHNEAHBXN0633-22-29 05:03:98124Xoraexzi OfaxmuiJREBXILDNVWL1973-54-49 05:03:283.4[facility] RdgvxntULXXUDOTLN8557-92-10 05:03:280.9[facility] SAMRILHJDR5220-93-51 05:03:280.1[facility] IabootzDCLDLHEMRK2070-87-31 05:03:28 10.0[facility] MxzdbepGYWDSBNRJW3905-17-32 05:03:2888.7[facility] HermannHEMATOLOGY 2013-10-15 05:03:281.2[facility] YwugjsbZRHLWZHLBL0239-91-91 05:03:280.1[facility] JourgsgRMFFTYMNLP3881-37-07 05:03:287.6[facility] HsloedpUDQLFPCVIJ5309-45-21 05:03:77943Ssowzvye BdamgbzDOJTFOVNTQ9069-24-48 05:03:288.7[facility] ZLYZASHIKH7489-70-73 05:03:2813.4[facility] QddqaeeMJGEKIYWGF6894-36-57 05:03:28 41.4[facility] QwjfsipMVOKXRZSOZ5908-96-29 05:03:2818.0[facility] HermannHEMATOLOGY 2013-10-15 05:03:2881.7[facility] IsszzfdZXPJMIKWWS0086-47-16 05:03:28 Test Item Value Reference Range Interpretation Comments MCH (test code = MCH) 26.5 pg 27.0-31.0 [facility] OyhsejoTNJAXKUZLT7669-29-79 05:03:288.6[facility] HermannHEMATOLOGY 2013-10-15 05:03:285.06[facility] UuumzdhGMNIFICZSV8059-00-54 05:03:2832.4[facility] PaxgushVVCTOO5352-43-96 05:03:288[facility] ZyaaowrVOLFJC1762-89-63 05:03:17353 [facility] KnhrdhlZGAGDB1750-98-59 05:03:2841[facility] OkaqvwoYLETSU7677-41-00 05:03:07106Eknpmxfs PftgnmxFIEROK0417-41-00 05:03:2871[facility] HermannLIPIDS 2013-10-15 05:03:282.66[facility] HermannSPECIAL DOKYUAMNV4750-57-89 05:03:285.1 [facility] HermannPARATHYROID HIFMZNU8404-68-24 05:03:001.14[facility] [place] PARATHYROID JLJABCX6857-62-61 05:03:001.11[facility] HermannURINE AND STOOL 2013-10-14 22:00:53Moderate *ABN*(10/14/13 5:00 PM)[facility]annURINE AND DROXD0000-81-58 22:00:53Negative *NA*(10/14/13 5:00 PM)[facility]annUR[facility] AND BYIYH9538-71-56 22:00:53Negative (10/14/13 5:00 PM)[facility]annUR[facility] AND MVPZE6206-06-74 22:00:530.2[facility]annURINE AND VRXBK3686-00-99 22:00:53 Negative (10/14/13 5:00 PM)[facility]annUR[facility] AND CUGUG6636-81-36 22:00:53 Negative (10/14/13 5:00 PM)[facility]ann[facility] AND TXKMA1121-83-90 22:00:53 Negative (10/14/13 5:00 PM)[facility]ann[facility] AND ELZRX0263-17-37 22:00:53 Test Item Value Reference Range Interpretation Comments UA pH (test code = UA pH) 6.5 1 5.0-8.0 [facility]annUR[facility] AND GUPZL9928-84-31 22:00:53 Test Item Value Reference Range Interpretation Comments UA Spec Grav (test code = UA Spec 1.020 1 Grav) [facility] AND ZYYFZ3247-46-28 22:00:53Yellow *NA*(10/14/13 5:00 PM) [facility] AND UAZVE3592-86-93 22:00:53Slight Cloudy (10/14/13 5:00 PM)[facility]annUR[facility] AND DBAVU7536-63-04 22:00:53Performed (10/14/13 5:00 PM) [facility]annCARDIAC XEGZAMD1037-19-27 21:47:001.4[facility] HermannCARDIAC CLDNMFY6040-10-60 21:47:000.7[facility] HermannCARDIAC CLDXCCO3106-61-07 21:47:00 <0.02[facility] HermannCARDIAC OBXWONG1916-32-67 21:47:0049[facility] JYBEXJTGDP2667-91-33 21:38:000.0[facility] VdhqiktECZAGNAFJL8803-56-79 21:38:000.0 [facility] DxvgfpcQBUCGTMTJC4441-07-56 21:38:00Normal (10/14/13 4:38 PM)[facility]MDWM[facility]ZIEK8521-98-26 21:38:00Normal (10/14/13 4:38 PM)[facility] QYHRDFEBGK4123-28-89 21:38:000.3[facility] [place]
--- NOTE | 2020-06-12 13:35 | RAD REPORT ---
EXAM DESCRIPTION: CT - Head Brain Wo Cont - 06/12/2020 1:28 pm CLINICAL HISTORY: Dizziness COMPARISON: 2019 TECHNIQUE: Computed axial tomography of the head was obtained. IV contrast was not requested. All CT scans are performed using dose optimization technique as appropriate and may include automated exposure control or mA/KV adjustment according to patient size. FINDINGS: An intracranial bleed is not seen . The ventricles are normal in caliber. No extra-axial fluid collection is noted. 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 There is adjacent cerebral atrophy. Fluid within the sinuses/ mastoids is not seen. IMPRESSION: No acute intracranial abnormality is seen. If patient's symptoms persist MRI of the bra in would be recommended.
[2020-06-12] MEDS ORDERED: DIPHENHYDRAMINE 50 MG/ML VIAL ONE (13:51)
[2020-06-12] MEDS ORDERED: METOCLOPRAMIDE 10 MG/2mL INJ ONE (13:51)
[2020-06-12] MEDS ORDERED: NA CHLORIDE 0.9% 1,000 ML ONE (13:52)
[2020-06-12] MEDS ORDERED: MECLIZINE HCL 12.5 MG TAB ONE (13:52)
[2020-06-12 14:00] LABS: Protime INR 0.98
[2020-06-12 14:01] LABS: Absolute Lymphocytes (CBC) 2.5 K/uL (0.7-4.9); Basophils % 0.9 % (0-1.3); Lymphocytes % 37.3 % (15.3-44.8); MPV 8.3 fL (7.6-11.3); RBC Red Blood Cell Count 4.88 M/uL (3.86-4.86)
[2020-06-12 14:12] LABS: ALT/SGPT 43 U/L (12-78); AST/SGOT 25 U/L (15-37); Albumin 3.8 g/dL (3.4-5.0); Alkaline Phosphatase 66 U/L (45-117); BUN Blood Urea Nitrogen 19 mg/dL (7-18); Bicarbonate 28 mmol/L (21-32); Bilirubin Direct < 0.1 mg/dL (0-0.2); Bilirubin Total 0.4 mg/dL (0.2-1.0); Glucose Level 101 mg/dL (74-106); Magnesium 2.3 mg/dL (1.8-2.4); NT PRO-BNP 32 pg/mL (<125); Potassium 3.8 mmol/L (3.5-5.1); Protein, Total 7.7 g/dL (6.4-8.2); Sodium Level 143 mmol/L (136-145); Troponin (Emerg Dept Use Only) < 0.02 ng/mL (0.0-0.045)
--- NOTE | 2020-06-12 14:23 | RAD REPORT ---
EXAM DESCRIPTION: Greta Single View06/12/2020 1:48 pm CLINICAL HISTORY: Dizziness COMPARISON: 2013 FINDINGS: The lungs appear clear of acute infiltrate. The heart is normal size IMPRESSION: No acute abnormalities displayed
--- NOTE | 2020-06-12 15:23 | RAD REPORT ---
EXAM DESCRIPTION: JEREMIAHPurnimajonatan Angio06/12/2020 2:54 pm CLINICAL HISTORY: CVA/dizziness COMPARISON: None TECHNIQUE: 50 cc Isovue 370 was administered intravenously. 3D MIP reconstruction performed All CT scans are performed using dose optimization technique as appropriate and may include automated exposure control or mA/KV adjustment according to patient size. FINDINGS: Mild plaque is present within common, internal and external carotid arteries. The distal left internal carotid artery is tortuous. Left vertebral artery is hypoplastic. No abnormality of the vertebral arteries noted. IMPRESSION: Mild plaque within the carotid arteries. NASCET criteria used. Mild 0-49% stenosis Moderate 50-69% stenosis Severe 70-99% stenosis
--- NOTE | 2020-06-12 15:26 | RAD REPORT ---
EXAM DESCRIPTION: CTHead angio06/12/2020 2:54 pm CLINICAL HISTORY: CVA/dizziness COMPARISON: None TECHNIQUE: CT angiogram of the head was obtained. 3D MIPS reconstruction performed. All CT scans are performed using dose optimization technique as appropriate and may include automated exposure control or mA/KV adjustment according to patient size. FINDINGS: origin right posterior cerebral artery. There is chronic narrowing of branches of left middle cerebral artery. The basilar, internal carotid, anterior cerebral, right middle cerebral and posterior cerebral arteri es are normal caliber. An aneurysm is not seen. A significant stenosis is not noted. IMPRESSION: No acute abnormality displayed
--- NOTE | 2020-06-12 15:40 | EDPHYS ---
Physician Documentation [facility] Name: Rosalina Dooley Age: 55 yrs Sex: Female : 1965 Arrival Date: 06/12/2020 Time: 12:54 Bed 19 Private MD: ED Physician Zeeshan Neumann HPI: 06/12 13:20 This 55 yrs old Female presents to ER via Ambulatory with complaints of cp Dizziness. 13:20 The patient presents with dizziness, feeling off balance. Onset: The symptoms/episode cp began/occurred today, 1 hour(s) ago. Associated signs and symptoms: Pertinent positives: headache. Patient's baseline: Neuro: alert and fully oriented, Motor: right-sided weakness, Ambulation: walks without assistance, Speech: normal. Historical: - Allergies: 12:59 NKDA; ll1 - PMHx: 12:59 CVA; Hypertension; no longer taking meds.; scoliosis; ll1 - PSHx: 12:59 back sx; ll1 - Immunization history:: Flu vaccine is not up to date. - Social history:: Smoking status: Patient denies any tobacco usage or history of. ROS: 13:25 Neuro: Positive for dizziness, headache, Negative for altered mental status, weakness. cp 13:25 Eyes: Negative for injury, pain, redness, and discharge. cp 13:25 Constitutional: Negative for body aches, chills, fever, poor PO intake. 13:25 Abdomen/GI: Negative for abdominal pain, vomiting, diarrhea, constipation. 13:25 ENT: Negative for ear pain, sore throat, difficulty swallowing, difficulty handling cp secretions. 13:25 Cardiovascular: Negative for chest pain, edema, palpitations. 13:25 Respiratory: Negative for cough, shortness of breath, wheezing. 13:25 Back: Negative for pain at rest, pain with movement. 13:25 Skin: Negative for cellulitis, rash. 13:25 All other systems are negative. Exam: 13:35 Constitutional: The patient appears in no acute distress, alert, awake, cp non-diaphoretic, non-toxic, well developed, well nourished. 13:35 Head/Face: Normocephalic, atraumatic. cp 13:35 Eyes: Periorbital structures: appear normal, Pupils: equal, round, and reactive to light and accomodation, Extraocular movements: intact throughout, Conjunctiva: normal, no exudate, no injection, Sclera: no appreciated abnormality, Lids and lashes: appear normal, bilaterally. 13:35 ENT: External ear(s): are unremarkable, Nose: is normal, Mouth: Lips: moist, Oral mucosa: moist, Posterior pharynx: Airway: no evidence of obstruction, patent. 13:35 Neck: ROM/movement: is normal, is supple, without pain, no range of motions limitations, no meningismus. 13:35 Chest/axilla: Inspection: normal, Palpation: is normal, no crepitus, no tenderness. 13:35 Cardiovascular: Rate: normal, Rhythm: regular. 13:35 Respiratory: the patient does not display signs of respiratory distress, Respirations: normal, no use of accessory muscles, no retractions, labored breathing, is not present, Breath sounds: are clear throughout, no decreased breath sounds. 13:35 Abdomen/GI: Inspection: abdomen appears normal, Palpation: abdomen is soft and non-tender, in all quadrants. 13:35 Neuro: Orientation: to person, place \T\ time. Mentation: is normal, Cerebellar function: no acute changes, Motor: no acute changes, Sensation: no acute changes. 14:13 ECG was reviewed by the Attending Physician. Vital Signs: 12:59 BP 131 / 85; Pulse 67; Resp 16; Temp 97.8; Pulse Ox 99% ; Weight 72.57 kg; Height 5 ft. ll1 7 in. (170.18 cm); Pain 8/10; 14:00 BP 126 / 81 LA (auto/reg); Pulse 68; Resp 14 S; Pulse Ox 100% on R/A; jp3 15:56 BP 127 / 82; Pulse 69; Resp 16; Pulse Ox 100% on R/A; bw 12:59 Body Mass Index 25.06 (72.57 kg, 170.18 cm) ll1 MDM: 13:13 Patient medically screened. cp 14:00 Differential diagnosis: cardiac arrhythmia, CVA, generalized weakness, hypovolemia, cp TIA, vertigo. 15:35 Data reviewed: vital signs, nurses notes, lab test result(s), EKG, radiologic studies, cp CT scan, plain films. 15:35 Test interpretation: by ED physician or midlevel provider: ECG, plain radiologic cp studies. Counseling: I had a detailed discussion with the patient and/or guardian regarding: the historical points, exam findings, and any diagnostic results supporting the discharge/admit diagnosis, lab results, radiology results, the need for outpatient follow up, a family practitioner, to return to the emergency department if symptoms worsen or persist or if there are any questions or concerns that arise at home. Response to treatment: the patient's symptoms have markedly improved after treatment. 06/12 13:16 Order name: Basic Metabolic Panel 06/12 13:16 Order name: CBC with Diff 06/12 13:16 Order name: LFT's 06/12 13:16 Order name: Magnesium 06/12 13:16 Order name: NT PRO-BNP; Complete Time: 14:19 06/12 13:16 Order name: PT-INR; Complete Time: 14:19 06/12 13:14 Order name: CT Head Brain wo Cont; Complete Time: 14:19 06/12 13:16 Order name: Troponin (emerg Dept Use Only); Complete Time: 14:19 06/12 15:14 Interpretation: Within normal limits: TROPED < 0.02. 06/12 13:17 Order name: Basic Metabolic Panel; Complete Time: 14:19 EDMS 06/12 15:13 Interpretation: Normal except: CL 109; BUN 19. 06/12 13:17 Order name: CBC with Automated Diff; Complete Time: 14:19 EDMS 06/12 15:13 Interpretation: Normal except: RBC 4.88; HGB 15.3; MCV 92.2; MCH 31.3; EOSINOPHIL % 5.8. 06/12 13:17 Order name: Liver (Hepatic) Function; Complete Time: 14:19 EDMS 06/12 15:13 Interpretation: Normal except: GLOB 3.9; A/G 1.0. 06/12 13:17 Order name: Magnesium; Complete Time: 14:19 EDNM 06/12 14:37 Order name: SARS-COV-2 RT PCR; Complete Time: 15:12 EDNM 06/12 15:13 Interpretation: Results reviewed. 06/12 13:16 Order name: XRAY Chest (1 view); Complete Time: 15:12 06/12 15:13 Interpretation: Report review. 06/12 13:16 Order name: EKG; Complete Time: 13:17 cp 06/12 13:16 Order name: Cardiac monitoring; Complete Time: 13:37 cp 06/12 13:16 Order name: EKG - Nurse/Tech; Complete Time: 14:06 cp 06/12 13:16 Order name: IV Saline Lock; Complete Time: 13:52 cp 06/12 13:16 Order name: Labs collected and sent; Complete Time: 13:52 cp 06/12 13:16 Order name: O2 Per Protocol; Complete Time: 13:36 cp 06/12 13:16 Order name: O2 Sat Monitoring; Complete Time: 13:37 cp 06/12 14:23 Order name: CT Head Angio; Complete Time: 15:28 cp 06/12 15:29 Interpretation: Report reviewed. 06/12 14:23 Order name: CT Neck Angio; Complete Time: 15:28 cp 06/12 15:29 Interpretation: Report reviewed. cp EC:13 Rate is 60 beats/min. Rhythm is regular. WI interval is normal. QRS interval is normal. cp QT interval is normal. T waves are Inverted in lead aVR. Interpreted by me. Reviewed by me. Administered Medications: 13:50 Drug: NS 0.9% 1000 ml Route: IV; Rate: 1000 ml/hr; Site: right hand; bw 16:06 Follow up: Response: No adverse reaction; IV Status: Completed infusion bw 16:06 Follow up: Response: No adverse reaction bw 13:51 Drug: Meclizine 25 mg Route: PO; bw 16:07 Follow up: Response: No adverse reaction bw 13:51 Drug: Reglan 10 mg Route: IVP; Site: right hand; bw 16:06 Follow up: Response: No adverse reaction bw 13:51 Drug: Benadryl (diphenhydrAMINE) 12.5 mg Route: IVP; Site: right hand; bw 16:06 Follow up: Response: No adverse reaction Disposition: 16:37 Co-signature as Attending Physician, Zeeshan Neumann MD. rn Disposition: 06/12/20 15:39 Discharged to Home. Impression: Dizziness and giddiness, Headache. - Condition is Stable. - Discharge Instructions: Dizziness, General Headache Without Cause. - Prescriptions for Meclizine 25 mg Oral Tablet - take 1 tablet by ORAL route every 8 hours As needed; 30 tablet. Zofran 4 mg Oral Tablet - take 1 tablet by ORAL route every 12 hours As needed; 20 tablet. - Medication Reconciliation Form, Thank You Letter, Antibiotic Education, Prescription Opioid Use form. - Follow up: Private Physician; When: 1 - 2 days; Reason: Recheck today's complaints. - Problem is new. - Symptoms have improved. Signatures: Dispatcher [employer] [facility] Zeeshan Neumann MD MD rn Duncan Gutiérrez PA PA cp Alvarado Linton RN RN [facility] Jayna Espinosa RN RN bw Corrections: (The following items were deleted from the chart) 13:50 13:17 CORONAVIRUS+MR.LAB.BRZ ordered. [facility] 16:24 15:39 06/12/2020 15:39 Discharged to Home. Impression: Dizziness and giddiness; bw Headache. Condition is Stable. Forms are Medication Reconciliation Form, Thank You Letter, Antibiotic Education, Prescription Opioid Use. Follow up: Private Physician; When: 1 - 2 days; Reason: Recheck today's complaints. Problem is new. Symptoms have improved. cp
--- NOTE | 2020-06-12 15:40 | ER ---
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 Stroke 6 ll1 years ago that affected her R side, Gait steady. Coronavirus screen: Client denies travel out of the [place] in the last 14 days. At this time, the client does not indicate any symptoms associated with coronavirus-19. Ebola Screen: Patient denies travel to an Ebola-affected area in the 21 days before illness onset. Initial Sepsis Screen: Does the patient meet any 2 criteria? No. Patient's initial sepsis screen is negative. Does the patient have a suspected source of infection? Yes: Other: REYNOSO. Risk Assessment: Do you want to hurt yourself or someone else? Patient reports no desire to harm self or others. Onset of symptoms was June 12, 2020. 12:59 Method Of Arrival: Ambulatory ll1 12:59 Acuity: MEKA 3 ll1 Historical: - Allergies: 12:59 NKDA; ll1 - PMHx: 12:59 CVA; Hypertension; no longer taking meds.; scoliosis; ll1 - PSHx: 12:59 back sx; ll1 - Immunization history:: Flu vaccine is not up to date. - Social history:: Smoking status: Patient denies any tobacco usage or history of. Screenin:04 Abuse screen: Denies threats or abuse. Nutritional screening: No deficits noted. bw Tuberculosis screening: No symptoms or risk factors identified. Fall Risk None identified. Assessment: 13:04 General: Appears in no apparent distress. Behavior is calm, cooperative, appropriate bw for age. Pain: Complains of pain in headache Pain currently is 8 out of 10 on a pain scale. Neuro: Reports dizziness, headache. Cardiovascular: No deficits noted. Respiratory: No deficits noted. GI: No deficits noted. : No deficits noted. EENT: No deficits noted. EENT: No deficits noted. Derm: No deficits noted. Musculoskeletal: No deficits noted. 14:21 Reassessment: Patient appears in no apparent distress at this time. No changes from bw previously documented assessment. Patient and/or family updated on plan of care and expected duration. Pain level reassessed. Patient is alert, oriented x 3, equal unlabored respirations, skin warm/dry/pink. 15:56 Reassessment: Patient appears in no apparent distress at this time. No changes from bw previously documented assessment. Patient and/or family updated on plan of care and expected duration. Pain level reassessed. Patient is alert, oriented x 3, equal unlabored respirations, skin warm/dry/pink. Vital Signs: 12:59 BP 131 / 85; Pulse 67; Resp 16; Temp 97.8; Pulse Ox 99% ; Weight 72.57 kg; Height 5 ft. ll1 7 in. (170.18 cm); Pain 8/10; 14:00 BP 126 / 81 LA (auto/reg); Pulse 68; Resp 14 S; Pulse Ox 100% on R/A; jp3 15:56 BP 127 / 82; Pulse 69; Resp 16; Pulse Ox 100% on R/A; bw 12:59 Body Mass Index 25.06 (72.57 kg, 170.18 cm) ll1 ED Course: 12:54 Patient arrived in ED. ds1 12:58 Arm band placed on Patient placed in an exam room, on a stretcher. ll1 13:00 Jayna Espinosa, RN is Primary Nurse. bw 13:00 Triage completed. ll1 13:04 Bed in low position. Call light in reach. Side rails up X 1. Pulse ox on. NIBP on. Warm bw blanket given. 13:04 No provider procedures requiring assistance completed. bw 13:06 Duncan Gutiérrez PA is PHCP. cp 13:06 Zeeshan Neumann MD is Attending Physician. cp 13:28 CT Head Brain wo Cont In Process Unspecified. EDMS 13:48 XRAY Chest (1 view) In Process Unspecified. EDMS 13:49 Inserted saline lock: 20 gauge in right wrist, using aseptic technique. Blood collected.jp3 13:49 Initial lab(s) drawn, by ne, sent to lab. COVID swab sent to lab. X-ray(s) taken. EKG jp3 done, by ED staff, reviewed by Duncan TOLENTINO. Patient maintains SpO2 saturation greater than 95% on room air. 14:04 site monitor on. jp3 14:54 CT Head Angio In Process Unspecified. EDMS 14:54 CT Neck Angio In Process Unspecified. EDMS 16:05 IV discontinued. bw 16:07 Basic Metabolic Panel Sent. bw 16:07 CBC with Diff Sent. bw 16:07 LFT's Sent. bw 16:07 Magnesium Sent. bw Administered Medications: 13:50 Drug: NS 0.9% 1000 ml Route: IV; Rate: 1000 ml/hr; Site: right hand; bw 16:06 Follow up: Response: No adverse reaction; IV Status: Completed infusion bw 16:06 Follow up: Response: No adverse reaction bw 13:51 Drug: Meclizine 25 mg Route: PO; bw 16:07 Follow up: Response: No adverse reaction bw 13:51 Drug: Reglan 10 mg Route: IVP; Site: right hand; bw 16:06 Follow up: Response: No adverse reaction bw 13:51 Drug: Benadryl (diphenhydrAMINE) 12.5 mg Route: IVP; Site: right hand; bw 16:06 Follow up: Response: No adverse reaction bw Outcome: 15:39 Discharge ordered by . victorino 16:05 Discharged to home ambulatory. bw 16:05 Condition: stable 16:05 Discharge instructions given to patient. 16:24 Patient left the ED. bw Signatures: Dispatcher [employer] [facility] Gloria Beltran ds1 Duncan Gutiérrez PA PA cp Pisarski, Jacob jp3 Alvarado Linton RN RN ll1 Jayna Espinosa RN RN bw
[2020-06-13 00:38] VITALS: TEMP 97.8
[2020-06-13 00:39] VITALS: O2SAT 100
[2020-06-13 00:41] VITALS: BP 127/82
--- NOTE | 2020-06-13 09:50 | EKG ---
Test Date: 2020-06-12 Test Time: 13:56:39 Supervisor Vendor Quality: REVA MEASUREMENT RESULTS: Intervals: Rate: 60 WI: 174 QRSD: 88 QT: 452 QTc: 452 Sharon: P: 47 WI: 174 QRS: 44 T: 59 INTERPRETIVE STATEMENTS: Normal sinus rhythm Normal ECG Compared to ECG 10/14/2013 13:59:20 Atrial premature complex(es) no longer present Electronically Signed On 06-13-20 09:47:52 CDT by Artur Jaffe
== END 2020-06-12 16:24 | disposition home or self-care (01) ==
LOC: ER 12:51
DX: R51.9 Headache, unspecified (principal); Z20.822 Contact with and (suspected) exposure to COVID-19; I10 Essential (primary) hypertension; Z86.73 Personal history of transient ischemic attack (TIA), and cerebral infarction without residual deficits
CPT/HCPCS: 93005; 85025; 80048; 36415; 83735; 85610; 80076; 84484; 83880; 70450; 70496; 70498; 71045; U0003; Q9967; J2765; J1200; J7030; 96361; 96374; 96375; 99285

== ENCOUNTER 2020-12-14 10:55 | Emergency (ER) | payer OTHER ==
--- NOTE | 2020-12-14 12:28 | RAD REPORT ---
EXAM DESCRIPTION: RAD - Knee Right 3 View - 12/14/2020 11:42 am CLINICAL HISTORY: PAIN, fall COMPARISON: No comparisons FINDINGS: No fracture, dislocation or periosteal reaction.No joint effusion seen. No joint space yolanda rowing. No foreign body in the soft tissues. Contusion or edema changes are present anteromedial aspe ct of the knee. IMPRESSION: No acute bone or joint finding. Contusion or edema seen in the soft tissues anteromedial to the knee. Clinical concerns for internal derangement or occult bony injury could be further assessed with MR im aging.
--- NOTE | 2020-12-14 12:29 | RAD REPORT ---
EXAM DESCRIPTION: RAD - Tib Fib Right - 12/14/2020 11:42 am CLINICAL HISTORY: PAIN, trip and fall COMPARISON: No comparisons FINDINGS: No fracture is identified. There is no dislocation or periosteal reaction noted. No acute or suspicious bony finding. No foreign body seen. Soft tissues lateral to the distal fibula are prominent with the baseline for t he patient unknown. IMPRESSION: Negative examination of the right tibia and fibula. Soft tissue swelling around the ankle joint.
--- NOTE | 2020-12-14 12:48 | EDPHYS ---
Physician Documentation [facility] Name: Rosalina Dooley Age: 55 yrs Sex: Female : 1965 Arrival Date: 12/14/2020 Time: 10:59 Bed 10 Private MD: [facility] ED Physician Duncan Anne HPI: 12/14 11:27 This 55 yrs old Female presents to ER via Ambulatory with complaints of Leg kb Pain, Fall Injury. 11:27 The patient presents with pain, that is acute, swelling, tenderness. The complaints kb affect the right knee. Context: The problem was sustained at home, resulted from the patient falling, the patient can fully bear weight, the patient is able to ambulate, Problem is a result from a previous injury: No. Onset: The symptoms/episode began/occurred last week. Modifying factors: The symptoms are alleviated by nothing. the symptoms are aggravated by weight bearing. Associated signs and symptoms: Pertinent positives: swelling. Treatment prior to arrival includes: no previous treatment. Severity of symptoms: At their worst the symptoms were moderate, in the emergency department the symptoms are unchanged. The patient has not experienced similar symptoms in the past. The patient has not recently seen a physician. Pt reports she tripped over a pack and play last week and fell to her right knee. reports pain, swelling and bruising to right knee since then. States the swelling and bruising is now down leg into ankle.. Historical: - Allergies: 11:08 NKDA; jl7 - Home Meds: 11:08 Aspirin Oral [Active]; unknown antihypertensive [Active]; jl7 - PMHx: 11:08 CVA; Hypertension; scoliosis; jl7 - Immunization history:: Adult Immunizations up to date, Client reports receiving the 2nd dose of the Covid vaccine, Pfizer. - Social history:: Smoking status: Patient denies any tobacco usage or history of. ROS: 11:16 Constitutional: Negative for fever, chills, and weight loss. kb 11:16 MS/extremity: Positive for injury or acute deformity, ecchymosis, pain, swelling, tenderness, of the right knee. 11:16 All other systems are negative. Exam: 11:17 Constitutional: This is a well developed, well nourished patient who is awake, alert, kb and in no acute distress. Head/Face: Normocephalic, atraumatic. ENT: Moist Mucous membranes Respiratory: Respirations even and unlabored. No increased work of breathing, no retractions or nasal flaring. Skin: Warm, dry with normal turgor. Normal color. Neuro: Awake and alert, GCS 15, oriented to person, place, time, and situation. Moves all extremities. Normal gait. Psych: Awake, alert, with orientation to person, place and time. Behavior, mood, and affect are within normal limits. 11:17 Musculoskeletal/extremity: Extremities: grossly normal except: noted in the right knee: ecchymosis, pain, swelling, tenderness, ROM: intact in all extremities, Circulation is intact in all extremities. Sensation intact. Weight bearing: able to fully bear weight. Vital Signs: 11:07 BP 106 / 88; Pulse 73; Resp 16; Temp 97.8; Pulse Ox 100% ; Weight 72.57 kg; Height 5 jl7 ft. 7 in. (170.18 cm); Pain 0/10; 11:07 Body Mass Index 25.06 (72.57 kg, 170.18 cm) jl7 MDM: 11:03 Patient medically screened. kb 11:13 Data reviewed: vital signs, nurses notes. Data interpreted: Pulse oximetry: on room air kb is 100 %. Interpretation: normal. Counseling: I had a detailed discussion with the patient and/or guardian regarding: the historical points, exam findings, and any diagnostic results supporting the discharge/admit diagnosis, radiology results, the need for outpatient follow up, to return to the emergency department if symptoms worsen or persist or if there are any questions or concerns that arise at home. 12/14 11:07 Order name: Knee Right 3 View XRAY; Complete Time: 12:47 kb 12/14 11:07 Order name: Tib Fib Right XRAY; Complete Time: 12:47 kb 12/14 12:49 Order name: Adalid Wrap; Complete Time: 12:56 kb Administered Medications: No medications were administered Disposition Summary: 12/14/20 12:47 Discharge Ordered Location: Home kb Condition: Stable kb Diagnosis - Pain in right knee kb Followup: kb - With: Emergency Department - When: As needed - Reason: Worsening of condition Followup: kb - With: Private Physician - When: 2 - 3 days - Reason: Recheck today's complaints, Continuance of care, Re-evaluation by your physician Discharge Instructions: - Discharge Summary Sheet kb - Musculoskeletal Pain kb - Acute Knee Pain, Adult, [id number] kb Forms: - Medication Reconciliation Form kb - Thank You Letter kb - Antibiotic Education kb - Prescription Opioid Use kb Addendum: 12/16/2020 10:58 Co-signature as Attending Physician, Duncan Anne MD I agree with the assessment and c hernandes plan of care. Signatures: Dispatcher [employer] EDYaz Meek, [employer]C [employer]-Duncan Cai MD MD cha Leal, Jahala, RN RN jl7
--- NOTE | 2020-12-14 12:48 | ER ---
Nurse's Notes [facility] Name: Rosalina Dooley Age: 55 yrs Sex: Female : 1965 Arrival Date: 12/14/2020 Time: 10:59 Bed 10 Private MD: Wilberto Huerta Diagnosis: Pain in right knee Presentation: 12/14 11:05 Chief complaint: Patient states: Tripped and fell, reports swelling and bruising to jl7 right lower extremity 1 week ago, denies pain. Care prior to arrival: None. Mechanism of Injury: Fall from standing position. Trauma event details: Injury occurred in the [facility], Injury occurred: at home. 11:05 Acuity: MEKA 4 jl7 11:05 Method Of Arrival: Ambulatory jl7 11:07 Coronavirus screen: At this time, the client does not indicate any symptoms associated jl7 with coronavirus-19. Ebola Screen: No symptoms or risks identified at this time. Initial Sepsis Screen: Does the patient meet any 2 criteria? No. Patient's initial sepsis screen is negative. Does the patient have a suspected source of infection? No. Patient's initial sepsis screen is negative. Risk Assessment: Do you want to hurt yourself or someone else? Patient reports no desire to harm self or others. Onset of symptoms was December 05, 2020. Triage Assessment: 11:08 General: Appears in no apparent distress. uncomfortable, Behavior is calm, cooperative, jl7 appropriate for age. Pain: Denies pain. Trauma Activation: Not Applicable Physician: ED Physician; Name: ; Notified At: ; Arrived At: Physician: General Surgeon; Name: ; Notified At: ; Arrived At: Physician: Radiology; Name: ; Notified At: ; Arrived At: Physician: Respiratory; Name: ; Notified At: ; Arrived At: Physician: Lab; Name: ; Notified At: ; Arrived At: Historical: - Allergies: 11:08 NKDA; jl7 - Home Meds: 11:08 Aspirin Oral [Active]; unknown antihypertensive [Active]; jl7 - PMHx: 11:08 CVA; Hypertension; scoliosis; jl7 - Immunization history:: Adult Immunizations up to date, Client reports receiving the 2nd dose of the Covid vaccine, Pfizer. - Social history:: Smoking status: Patient denies any tobacco usage or history of. Screenin:29 Abuse screen: Denies threats or abuse. Nutritional screening: No deficits noted. ap3 Tuberculosis screening: No symptoms or risk factors identified. Fall Risk Fall in past 12 months (25 points). Secondary diagnosis (15 points) CVA, No IV (0 pts). Ambulatory Aid- None/Bed Rest/Nurse Assist (0 pts). Gait- Normal/Bed Rest/Wheelchair (0 pts) Mental Status- Oriented to own ability (0 pts). Total Brown Fall Scale indicates High Risk Score (45 or more points). Fall prevention measures have been instituted. Placed Close to Nursing Station Frequent Obs/Assessments Occuring As available patient and family educated on Fall Prevention Program and Strategies. Assessment: 11:28 General: Appears in no apparent distress. Behavior is calm, cooperative, appropriate ap3 for age. Pain: Complains of pain in medial aspect of right knee Pain radiates to right leg. Neuro: Level of Consciousness is awake, alert, obeys commands, Oriented to person, place, time, situation, Appropriate for age Moves all extremities. Speech is normal. Cardiovascular: Capillary refill < 3 seconds Patient's skin is warm and dry. Respiratory: Airway is patent Respiratory effort is even, unlabored. Musculoskeletal: Swelling present in right knee. 12:32 Reassessment: Patient and/or family updated on plan of care and expected duration. Pain ap3 level reassessed. Patient is alert, oriented x 3, equal unlabored respirations, skin warm/dry/pink. Vital Signs: 11:07 BP 106 / 88; Pulse 73; Resp 16; Temp 97.8; Pulse Ox 100% ; Weight 72.57 kg; Height 5 jl7 ft. 7 in. (170.18 cm); Pain 0/10; 11:07 Body Mass Index 25.06 (72.57 kg, 170.18 cm) jl7 ED Course: 10:59 Patient arrived in ED. am2 10:59 Wilberto Huerta DO is Private Physician. am2 11:03 Yaz Sinha [facility]-C [facility]. kb 11:03 Duncan Anne MD is Attending Physician. kb 11:07 Triage completed. jl7 11:08 Arm band placed on right wrist. jl7 11:22 Tita Loja, RN is Primary Nurse. ap3 11:29 Patient has correct armband on for positive identification. Call light in reach. Door ap3 closed. Noise minimized. 11:42 Knee Right 3 View XRAY In Process Unspecified. EDMS 11:42 Tib Fib Right XRAY In Process Unspecified. EDMS 12:56 No provider procedures requiring assistance completed. Patient did not have IV access ap3 during this emergency room visit. Administered Medications: No medications were administered Outcome: 12:47 Discharge ordered by . kb 12:57 Discharged to home ambulatory. ap3 12:57 Condition: good 12:57 Discharge instructions given to patient, Instructed on discharge instructions, follow up and referral plans. Demonstrated understanding of instructions, follow-up care. 12:57 Patient left the ED. ap3 Signatures: Dispatcher [employer] EDMS Yaz Sinha, TABLE FILLER-C TABLE FILLER-Scott Samson, RN RN jl7 Tita Armenta am2 Tita Loja, JODI RN ap3
[2020-12-14 13:01] VITALS: BP 106/88; TEMP 97.8; O2SAT 100
== END 2020-12-14 12:57 | disposition home or self-care (01) ==
LOC: ER 10:55
DX: M25.561 Pain in right knee (principal); I10 Essential (primary) hypertension; Z79.82 Long term (current) use of aspirin; Z86.73 Personal history of transient ischemic attack (TIA), and cerebral infarction without residual deficits
CPT/HCPCS: 99283